=== PATIENT | female | born 1965 | race Caucasian/White ===

== ENCOUNTER 2018-03-08 08:50 | Outpatient (CLI) | payer OTHER, SELFPAY ==
--- NOTE | 2018-03-08 09:47 | W.PREOPHP ---
Assessment and Plan (1) Right ACL tear: Current visit: Yes Status: Acute Plan: Reviewed and discussed surgery including surgical technique, recovery, benefits and risks including but not limited to risk of infection, blood clot, damage to soft tissue/nerves/blood vessels with patient in detail. After discussion of risks patient gave verbal understanding and elects to proceed with procedure. Patient had opportunity to have questions answered to her satisfaction. Patient will contact office if issues arise, she will continue to be scheduled for right knee arthroscopy with Dr. Man on 03/14/18. Qualifiers: Encounter type: subsequent encounter Qualified Code(s): S83.511D - Sprain of anterior cruciate ligament of right knee, subsequent encounter History of Present Illness Narrative: Ms. Mccann is a 52-year-old female who presents to clinic for preoperative visit for scheduled right knee arthroscopy with Dr. Man on 03/14/18. Patient suffered a Workmen's Comp. 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 She fell on her back and is unable to recall how her knee was oriented during the fall but since that time has had right knee pain. Patient describes diffuse right knee pain, weakness and occasional giving out sensations. She had first been seen at [facility] where she was fitted with a brace and given prescription for physical therapy. Patient states the brace did not provide pain relief and was uncomfortable, he has continued to attend physical therapy regularly since October 2017 without significant improvement. Patient was originally scheduled for right ACL surgery with [facility], however due to social circumstances patient relocated to the area to provide care for her mother and was unable to continue with her surgery date. Patient has continued to take ibuprofen as needed which provides slight pain relief and attend physical therapy at [facility] regularly. Patient presented to orthopedic clinic on 02/08/18 at which time the disc of diagnostic imaging she had previously done was unable to be viewed. However, due to patient's history and positive pertinent physical exam findings including anterior drawer, Logan's test and pivot?shift test from that day Dr. Man elected to continue with scheduling right knee arthroscopy to provide visualization of the ACL tear and hopefully have symptomatic improvement. Pertinent Surgical Information Patient reports sleep apnea diagnosis for several years with intermittent compliance with CPAP machine. Patient reports has been using CPAP machine nightly for the last 1.5 years. Patient denies any dyspnea, orthopnea, or paroxysmal nocturnal dyspnea. Denies past medical history of: Hypertension, stroke, cardiac issues, angina, asthma, COPD, renal issues, liver issues, hepatitis, gastrointestinal issues, ulcers, bleeding disorders, seizures, anxiety, diabetes, autoimmune disorders, thyroid issues Denies prior complications from surgery or anesthesia. Review of Systems Constitutional Denies fever(s), Denies frequent falls and Denies headache(s) Eyes Denies change in vision ENT Denies otalgia, Denies headache(s), Denies epistaxis, Denies nasal congestion, Denies nasal discharge and Denies sore throat Cardiovascular Denies chest pain, Denies rapid heart rate, Denies irregular heart rhythm, Denies dyspnea, Denies dyspnea on exertion, Denies orthopnea, Denies paroxysmal nocturnal dyspnea and Denies slow heart rate Respiratory Denies cough, Denies dyspnea, Denies dyspnea on exertion and Denies wheezing Gastrointestinal Denies abdominal pain, Denies melena, Denies hematochezia, Denies constipation, Denies diarrhea, Denies nausea and Denies vomiting Genitourinary Denies hematuria, Denies dysuria and Denies urinary urgency Musculoskeletal Reports as per HPI, Denies numbness and Denies tingling Neurologic Denies frequent falls, Denies headache(s), Denies numbness and Denies tingling Psychiatric Denies anxiety and Reports depression Allergic/Immunologic Denies wheezing PFSH Medical History Migraine (Chronic) Hx of irritable bowel syndrome (Inactive) Obesity (Chronic) Smoker (Chronic) Hereditary hemochromatosis (Chronic) Mood disorder (Chronic) MAGDALENO on CPAP (Chronic) Right ACL tear (Acute) Surgical History Status post arthroscopy of right shoulder (Acute) History of detached retina repair (Acute) Status post nasal surgery (Acute) Status post cervical spinal fusion (Acute) Family History Mother Mitral valve prolapse History of supraventricular tachycardia History of atrial fibrillation Dementia Hereditary hemochromatosis Father Hypertension Hyperlipidemia Glaucoma Sister No problems noted. Social History marital status: current occupational status: unemployed Smoking/Tobacco Use Status: Current every day tobacco type: cigarettes alcohol intake: current alcohol intake frequency: a few times a month substance use type: does not use Meds Home Medications Medication Instructions Recorded Confirmed Type atorvastatin 40 mg tablet 40 mg PO DAILY 02/28/18 03/08/18 History bupropion HCl XL 300 mg 24 hr 300 mg PO QAM 02/28/18 03/08/18 History tablet, extended release dextroamphetamine-amphetamine ER 30 mg PO QAM 02/28/18 03/08/18 History 30 mg 24hr capsule,extend release duloxetine 60 mg capsule,delayed 60 mg PO DAILY 02/28/18 03/08/18 History release fexofenadine 180 mg tablet 180 mg PO DAILY 02/28/18 03/08/18 History ibuprofen 800 mg tablet 800 mg PO TID PRN 02/28/18 03/08/18 History propranolol ER 60 mg capsule,24 60 mg PO DAILY 02/28/18 03/08/18 History hr,extended release rizatriptan 10 mg tablet 10 mg PO PRN PRN 02/28/18 03/08/18 History aripiprazole [Abilify] 3.75 mg PO DAILY 03/08/18 03/08/18 History Allergies Allergy/AdvReac Type Severity Reaction Status Date / Time lodine Allergy Hives Uncoded 03/08/18 14:48 Exam Const General: cooperative and no acute distress [facility] Head: normal to inspection, normocephalic and atraumatic Ears: external ears normal General nose exam: external nose normal and no nasal discharge Face and sinus: face symmetric Mouth: oral mucosae normal, lip normal, tongue normal and moist mucous membranes Teeth and gingiva: dentition normal Throat: posterior oropharynx normal Eyes General: appearance normal, both eyes and all related structures Pupils: PERRL EOM: EOM intact bilaterally Neck Neck: trachea midline Carotids: normal carotid upstroke Lymphatic: no lymphadenopathy noted Resp Effort & Inspection: normal respiratory effort and able to speak in complete sentences Auscultation: clear to auscultation bilaterally, no rales, no rhonchi and no wheezes Cardio Heart Sounds: S1 normal, S2 normal, no murmurs, no rubs and no other Pulses: radial pulses present bilaterally GI Palpation: soft, no hepatosplenomegaly and nontender Auscultation: normal bowel sounds Skin General skin exam: no rashes or lesions noted Extrem Other: Right knee examination: Skin is intact without areas of rashes, lesions, ecchymosis or erythema. No tenderness to palpation along joint lines or with movement of patella. No signs of effusion are noted. Active range of motion yields full extension and flexion of 120 degrees without eliciting discomfort.
== END 2018-03-08 09:10 ==
PROVIDERS: PCP Family Medicine; Visit Provider Orthopaedic Surgery
DX: S83.511A Sprain of anterior cruciate ligament of right knee, initial encounter (principal); M25.561 Pain in right knee; Z01.818 Encounter for other preprocedural examination
CPT/HCPCS: NC

== ENCOUNTER 2018-03-14 11:16 | Day surgery (SDC) | payer MEDICAID, OTHER, SELFPAY ==
[2018-03-14 11:25] VITALS: BP 158/101; PULSE 67; RESP 20; TEMP 37; O2SAT 97
[2018-03-14] MEDS: Lactated Ringers 1,000 ML 80 ML IV (11:45)
[2018-03-14 13:49] VITALS: BP 153/82; PULSE 60; RESP 12; TEMP 36.3; O2SAT 96
--- NOTE | 2018-03-14 13:49 | PDOC.DSDIS_ITS ---
Discharge Plan Disposition Patient Disposition: HOME Condition: Good Discharge Details Reason For Visit: arthroscopy R knee Attending Provider: Rl Man Primary Care Provider: Angela Leon Home Meds and New Rx's Prescriptions: New ibuprofen 800 mg tablet 800 mg PO TID Qty: 30 RF: 0 hydrocodone-acetaminophen 5-325 mg tablet 1 tab PO Q6H PRN (Reason: pain) Qty: 14 RF: 0 Continued dextroamphetamine-amphetamine [Adderall XR] 30 mg capsule,extended release 24hr 30 mg PO QAM RF: 0 rizatriptan 10 mg tablet 10 mg PO PRN PRNRF: 0 propranolol 60 mg capsule,extended release 24 hr 60 mg PO DAILY RF: 0 ibuprofen 800 mg tablet 800 mg PO TID PRNRF: 0 atorvastatin 40 mg tablet 40 mg PO DAILY RF: 0 fexofenadine 180 mg tablet 180 mg PO DAILY RF: 0 duloxetine [Cymbalta] 60 mg capsule,delayed release(DR/EC) 60 mg PO DAILY RF: 0 bupropion HCl [Wellbutrin XL] 300 mg tablet extended release 24 hr 300 mg PO QAM RF: 0 aripiprazole [Abilify] 5 mg Tablet 3.75 mg PO DAILY RF: 0 Discharge Instructions Additional Instructions: Crutches to walk. May put as much weight on R leg as your pain. Discontinue crutches as soon as you can step on R leg with minimal pain. Elevate R leg on 1-2 pillows as much as possible for next 48 hours. Apply cryocuff to R knee every 4 hours for 1 hour each time overnite. Tomorrow, apply 4 times/day for 1 hour each time. May remove dressings, shower, and get incisions wet on . Leave incisions uncovered when they are dry and sealed. Start outpatient physical therapy on or Monday for rehab R knee post- arthroscopy R knee to resect torn ACL. Take ibuprofen as ordered 3 times/day for 10 days to decrease inflammation and swelling. Take hydrocodone for breakthru pain, if needed. Return to 's office in 2 weeks. Equipment/Supplies: Partial Weight Bearing Crutches Activity:: Activity as Tolerated Remove Dressings/Wound Care:: 72 hours Shower/Bathe:: 72 hours Diet:: As Tolerated Discharge Orders Discharge Orders: Discharge Order (Routine); Ordered 03/14/18 Ordered By: Rl Man DS: Diagnosis Discharge Diagnosis (1) Right ACL tear: Status: Acute
[2018-03-14 13:54] VITALS: BP 148/86; PULSE 60; RESP 18; TEMP 36.3; O2SAT 98
[2018-03-14 13:59] VITALS: BP 145/82; PULSE 61; RESP 17; TEMP 36.3; O2SAT 97
[2018-03-14 14:13] VITALS: BP 150/80; PULSE 59; RESP 14; TEMP 36.4; O2SAT 98
[2018-03-14] MEDS: oxyCODONE-CR 10 MG TABCR PO (14:51)
[2018-03-14 15:03] VITALS: BP 132/84; PULSE 61; RESP 18; TEMP 36.4; O2SAT 96
--- NOTE | 2018-03-15 17:35 | ROE_ITS ---
DATE OF PROCEDURE: March 14, 2018 PREOPERATIVE DIAGNOSIS: Torn ACL right knee. POSTOPERATIVE DIAGNOSIS: Torn ACL right knee. PROCEDURE: Arthroscopy of the right knee with resection of stump of torn ACL. SURGEON: Rl Man M.D. ANESTHESIA: General, Jack Rothman CRNA INDICATIONS: This is a 52-year-old white female who injured her right knee at work in September of 2017. She was seen by an orthopedist in [place], [place], where the diagnosis of a torn ACL was made. Ther e was some discussion about surgical reconstruction of the torn ACL. The patient had some family iss ues and so could not undergo surgery at that time. She has continued to have problems with recurrent swelling and giving way of her right knee. She subsequently moved to the [facility] and Maxwell leonard assumed her care. Her MRI scan does show a torn ACL and my interpretation is that she appears to have a stump of ACL tissue that is impinging on the intercondylar notch. It does not look like she has any meniscal pathology. Because of her age of 52 years and activity level that does not involve activities that involve any cutting or twisting, I felt that she probably would not need ACL reconstr uction. I felt that a resection of the torn stump of the ACL would probably alleviate her symptoms a nd allow her to have a stable knee for all of her usual activities. I felt that an arthroscopic proc edure would be much simpler and easier and faster to recover from than an ACL reconstruction. I also explained to her that if she did continue to have symptoms of instability after the arthroscopic res ection of the ACL, she could always consider an allograft ACL reconstruction at a later date. The ri sks and complications of the procedure were explained to the patient in detail preoperatively. PROCEDURE: The patient was taken to the Operating Room on 03/14/18. She was placed supine on the oper ating table and a general anesthetic was administered. The right thigh was placed in the arthroscopi c leg moreno and the right knee was prepped and draped free in the usual sterile fashion. Arthroscop ic portals were established. The right knee was inflated with normal saline solution using the arthr oscopy pump and then routine arthroscopic examination proceeded. Intraoperative photographs were obt ained to document findings. Upon entering the medial compartment she was found to have a normal medial meniscus. The articular c artilage in the medial compartment was undamaged and normal in appearance. The lateral compartment showed a normal lateral meniscus and normal articular cartilage in the latera l compartment. The intercondylar notch showed a midsubstance tear of the ACL. The tibial stump of the ACL was scarr ed and was pedunculated and appeared to impinge between the condyles and the tibial plateau. Using frederick ramos high-radiofrequency electrocautery wand introduced through an anteromedial portal, I was able to r esect the torn fibers of the ACL including the pedunculated stump of scar tissue. The intercondylar was now completely decompressed. The suprapatellar pouch was clear. The patellofemoral joint was normal with normal patellar tracking . 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 This really did not need any treatment. The medial and lateral gutters were clear. No patella plica was present. At this point, the knee was copiously irrigated with saline solution using the arthroscopy pump until the outflow was clear. Twenty cc of 0.5% Marcaine with epinephrine solution along with 4 mg of morp danis were instilled into the right knee and all instruments were removed from the knee. The arthrosc opy portals were infiltrated with 0.5% Marcaine with epinephrine solution and were approximated with interrupted #4-0 nylon sutures. Sterile dressings were applied of Xeroform gauze, sterile gauze 4x4s , ABD pads, and wrapped with 6-inch Sonido bandages for a light pressure dressing. The patient's anesth esia was reversed without complications. Blood loss was minimal and she was discharged to the [facility] Room in good condition. The patient was later discharged home from the Day Surgery Unit when fully recovered from her general anesthesia. She was given instructions to elevate her right leg on one to two pillows as much as po ssible for the next 48 hours. She is to apply the Cryo/Cuff to the right knee four times a day for o ne hour each time to help decrease swelling. She may remove her dressings, shower and get her incisi ons wet after 72 hours. She may leave the incisions uncovered if they are dry and sealed. She was sumeet wade a prescription for inflammation and swelling of ibuprofen 800 mg p.o. t.i.d. for 10 days. For b reakthrough pain she is given a prescription of hydrocodone/APAP 5 mg/325 mg, 1 tablet every 6 hours as needed. She will use crutches to walk, weightbearing as tolerated to the right leg. She may disc ontinue the crutches as soon as discomfort allows. We will have her start Physical Therapy to rehab her right knee on or Monday. She will follow up in Dr. Man's office in two weeks.
== END 2018-03-14 15:51 | disposition home or self-care (01) ==
PROVIDERS: PCP Family Medicine; Visit Provider Orthopaedic Surgery
PROC: (CPT 29870; principal; 2018-03-14 13:00)
DX: S83.511A Sprain of anterior cruciate ligament of right knee, initial encounter (principal); X58.XXXA Exposure to other specified factors, initial encounter; Y99.0 Civilian activity done for income or pay
CPT/HCPCS: 29888; E0114; J0131; J0690; J1100; J1200; J1885; J2250; J2405; J3010

== ENCOUNTER 2018-05-02 09:55 | Emergency (ER) | payer MEDICAID, SELFPAY ==
[2018-05-02 10:01] VITALS: BP 149/78; PULSE 60; RESP 20; TEMP 36.4; O2SAT 99
--- NOTE | 2018-05-02 10:24 | ED.GENADUL_ITS ---
Discharge Plan Disposition Patient Disposition: HOME Condition: Improving Discharge Details Chief Complaint: Abd Prob Clinical Impression: Left nephrolithiasis Primary Care Provider: Angela Leon ED Provider: Alysha Garcia Home Meds and New Rx's Prescriptions: New tamsulosin [Flomax] 0.4 mg capsule 0.4 mg PO DAILY Qty: 10 RF: 0 oxycodone 5 mg tablet 5 mg PO Q6H PRN (Reason: pain) Qty: 5 RF: 0 Continued dextroamphetamine-amphetamine [Adderall XR] 30 mg capsule,extended release 24hr 30 mg PO QAM RF: 0 rizatriptan 10 mg tablet 10 mg PO PRN PRNRF: 0 propranolol 60 mg capsule,extended release 24 hr 60 mg PO DAILY RF: 0 ibuprofen 800 mg tablet 800 mg PO TID PRNRF: 0 atorvastatin 40 mg tablet 40 mg PO DAILY RF: 0 fexofenadine 180 mg tablet 180 mg PO DAILY RF: 0 duloxetine [Cymbalta] 60 mg capsule,delayed release(DR/EC) 60 mg PO DAILY RF: 0 bupropion HCl [Wellbutrin XL] 300 mg tablet extended release 24 hr 300 mg PO QAM RF: 0 aripiprazole [Abilify] 5 mg Tablet 3.75 mg PO DAILY RF: 0 Discharge Instructions Instructions: Kidney Stones (ED) Additional Instructions: Alternate Tylenol and Motrin as needed and directed for pain. Take the Flomax daily. Take the oxycodone as needed for pain not relieved with Tylenol or Motrin. You will receive a call from home care nurse regarding a follow-up appointment with urology. Return immediately to the emergency department with any worsening or new concerning symptoms. Referrals: Byron Mcnamara MD [ [facility] STAFF PHYSICIAN] - Discharge Data Discharge Date/Time-TO BE ENTERED AT DEPARTURE: 05/02/18 14:05 Discharge Physician: Alysha Garcia Medical Decision Making 52-year-old female who presents with left flank pain with radiation to left mid and lower quadrant since this morning. Some nausea but no vomiting, fever, urinary symptoms. Vitals within normal limits. Afebrile. Patient appears nontoxic in no acute distress. She has no abdominal tenderness and her abdomen is soft without rebound or guarding. No CVA tenderness. Differential diagnosis includes nephrolithiasis, gastritis, pancreatitis, diverticulitis. We will place an IV, bolus IV fluids, labs, urinalysis and will give a dose of Toradol and Zofran. 1330 --labs and imaging reviewed. White blood cell count 12. Normal electrolytes and renal function. Lipase negative. Urinalysis notes 3-5 WBCs with negative leukocyte esterase, nitrate with few bacteria and moderate epithelial cells, consistent with contamination. CT notes a 3 mm stone in the ureteropelvic junction with mild hydronephrosis. Suspect the leukocytosis is an acute stress response as I do not think there is an acute infection in the urine. Patient states she feels much better and feels good to go home. Will place patient on care management list for urology follow- up. She was given a strainer for home, dose of Flomax here as well as prescription for Flomax for home. Will also send with a few tabs of oxycodone. She is instructed to alternate Tylenol and Motrin as needed for pain and to return at any time if worse. Medical Records Medical records reviewed: Yes I reviewed the patient's medical records. Imaging Data Radiologic Study: Radiologist's impression: RENAL COLIC CT: Routine examination was performed. There is a 3 mm stone at the left ureteropelvic junction causing mild hydronephrosis. No other stones are seen. The urinary bladder is intact. The reproductive organs are unremarkable except for an intrauterine device in place. Lack of IV contrast does limit evaluation of the abdominal and pelvic organs. The unenhanced visualized portions of the liver, spleen, pancreas, gallbladder and bile ducts are unremarkable. The adrenal glands have a normal appearance. There is diverticulosis seen in the proximal sigmoid colon but no evidence of acute diverticulitis. No evidence of bowel obstruction is seen. There is a normal appendix present. The aorta is of normal caliber. There is mild atherosclerosis present. No significant abdominal or pelvic adenopathy, ascites or pneumoperitoneum is seen. Degenerative changes are present in the spine particularly at the L 4 - 5 disc level. IMPRESSION: 3 mm stone at the left UPJ causing mild hydronephrosis. Lab Data Lab results reviewed: Yes I reviewed the patient's lab results. Laboratory Tests Range/Units 05/02/18 05/02/18 05/02/18 10:40 10:40 12:00 WBC (4.4-10.8) k/cumm 12.50 H RBC (4.00-5.20) m/cumm 4.28 Hgb (12.0-15.5) g/dL 13.3 Hct (36.0-46.0) % 39.1 MCV (80-95) fL 91.4 MCH (27.0-33.0) pg 31.1 MCHC (32.0-36.0) g/dL 34.0 RDW (11.7-14.6) % 13.2 Plt Count (130-400) x1000/uL 258 MPV (8.0-11.0) fL 9.8 Immature Gran % 0.2 Neutrophils % 74.8 Lymphocytes % 17.8 Monocytes % 5.3 Eosinophils % 1.7 Basophils % 0.2 Absolute Neutrophils (1.2-6.7) k/cumm 9.35 H Absolute Lymphocytes (1.2-3.4) k/cumm 2.23 Absolute Monocytes (0.11-0.7) k/cumm 0.66 Absolute Eosinophils (0.0-0.7) k/cumm 0.21 Absolute Basophils (0.0-0.2) k/cumm 0.03 Sodium (136-145) mmol/L 144 Potassium (3.5-5.1) mmol/L 4.0 Chloride (98-107) mmol/L 106 Carbon Dioxide (21.0-32.0) mmol/L 29.1 Anion Gap (3-11) mmol/L 8.9 BUN (7-18) mg/dL 15 Creatinine (0.55-1.02) mg/dL 1.02 Estimated GFR/1.73 m2 (mL/min/1.73m2) 57.36 Glucose (70-100) mg/dL 125 H Calcium (8.5-10.1) mg/dL 9.1 Total Bilirubin (0.2-1.0) mg/dL 0.3 AST (15-37) U/L 27 ALT (12-78) U/L 34 Alkaline Phosphatase (46-116) U/L 99 Total Protein (6.4-8.2) g/dL 7.9 Albumin (3.4-5.0) g/dL 3.5 Lipase (73-393) U/L 218 Urine Color (Yellow) Yellow Urine Clarity Clear Urine pH (5-8) 7.5 Ur Specific [place] (1.005-1.025) 1.020 Urine Protein (Negative) mg/dL 30 H Urine Ketones (Negative) mg/dL Negative Urine Blood (Negative) Large H Urine Nitrite (Negative) Negative Urine Bilirubin (Negative) Negative Urine Urobilinogen (Up TO 0.2) EU/dL 0.2 Ur Leukocyte Esterase (Negative) Negative Urine RBC (0-2) 10-20 H Urine WBC (0-5) HPF 3-5 Ur Epithelial Cells (Negative) HPF Moderate Urine Crystals (Negative) HPF Negative Urine Bacteria (Negative) HPF Few Urine Casts (Negative) LPF Negative Urine Mucus (Negative) Negative Ur Culture Indicated? No/sq. contamination Urine Glucose (Negative) mg/dL Negative HPI General Mode of arrival: ambulatory . Date/Time Provider Initiated Documentation: 05/02/18 10:10 . Limitations to Documentation: no limitations . Information obtained by: patient . HPI Narrative: Patient is a 52-year-old female who presents the ED with a complaint of left-sided flank pain since 8:00 this morning. She states the pain is constant, sharp and goes from her left flank to her left mid and left lower quadrant. She states the pain is currently 8/10. She denies any aggravating or alleviating factors. She admits to some nausea but she denies any known fever, vomiting, diarrhea, urinary symptoms. She denies any history of known kidney stones or history of injury. Related Data Home Medications Medication Instructions Recorded Confirmed atorvastatin 40 mg tablet 40 mg PO DAILY 02/28/18 05/02/18 bupropion HCl XL 300 mg 24 hr 300 mg PO QAM 02/28/18 05/02/18 tablet, extended release dextroamphetamine-amphetamine ER 30 mg PO QAM 02/28/18 05/02/18 30 mg 24hr capsule,extend release duloxetine 60 mg capsule,delayed 60 mg PO DAILY 02/28/18 05/02/18 release fexofenadine 180 mg tablet 180 mg PO DAILY 02/28/18 05/02/18 ibuprofen 800 mg tablet 800 mg PO TID PRN 02/28/18 05/02/18 propranolol ER 60 mg capsule,24 60 mg PO DAILY 02/28/18 05/02/18 hr,extended release rizatriptan 10 mg tablet 10 mg PO PRN PRN 02/28/18 05/02/18 aripiprazole [Abilify] 3.75 mg PO DAILY 03/08/18 05/02/18 oxycodone 5 mg PO Q6H PRN #5 tab 05/02/18 tamsulosin [Flomax] 0.4 mg PO DAILY #10 cap 05/02/18 Previous Rx's Medication Instructions Recorded oxycodone 5 mg PO Q6H PRN #5 tab 05/02/18 tamsulosin [Flomax] 0.4 mg PO DAILY #10 cap 05/02/18 Allergies Allergy/AdvReac Type Severity Reaction Status Date / Time lodine Allergy Intermediate Hives Uncoded 05/02/18 10:05 General Stated Complaint: Abd Prob VALENTIN: 3 Review of Systems Review of Systems All systems reviewed & are unremarkable except as noted in HPI and below Constitutional Reports as per HPI, Denies chills and Denies fever(s) Eyes Denies blurry vision ENT Denies dizziness, Denies sore throat and Denies throat swelling Cardiovascular Denies chest pain and Denies dyspnea Respiratory Denies cough and Denies dyspnea Gastrointestinal Reports abdominal pain, Denies diarrhea and Denies vomiting Genitourinary Denies hematuria, Denies dysuria and Reports flank pain Musculoskeletal Reports back pain and Denies numbness Integumentary/Breasts Denies lesions and Denies rash Neurologic Denies dizziness, Denies focal weakness and Denies numbness Allergic/Immunologic Denies throat swelling [facility] Medical History Migraine (Chronic) Hx of irritable bowel syndrome (Inactive) Obesity (Chronic) Smoker (Chronic) Hereditary hemochromatosis (Chronic) Mood disorder (Chronic) MAGDALENO on CPAP (Chronic) Right ACL tear (Acute) Surgical History Status post arthroscopy of right shoulder (Acute) History of detached retina repair (Acute) Status post nasal surgery (Acute) Status post cervical spinal fusion (Acute) Family History Mother Mitral valve prolapse History of supraventricular tachycardia History of atrial fibrillation Dementia Hereditary hemochromatosis Father Hypertension Hyperlipidemia Glaucoma Sister No problems noted. Social History current occupational status: unemployed Smoking and Tabacco status: Current every day tobacco type: cigarettes alcohol intake: current alcohol intake frequency: a few times a month substance use type: does not use Exam Const General: cooperative, healthy appearing and no acute distress HENMT Head: normal to inspection Face and sinus: normal facial exam Eyes General: appearance normal, both eyes and all related structures EOM: EOM intact bilaterally Neck Neck: normal visual inspection and No submandibular swelling Lymphatic: no lymphadenopathy noted Chest Chest: normal inspection of the chest and no tenderness Resp Effort & Inspection: normal respiratory effort and able to speak in complete sentences Auscultation: clear to auscultation bilaterally Cardio Rate: regular rate Rhythm: regular rhythm GI Inspection: normal to inspection Palpation: soft, not firm, not rigid and nontender Auscultation: normal bowel sounds Back/Spine/Pelvis Back: no CVA tenderness Thoracic/Lumbar Spine: thoracic and lumbar spine normal to inspection Pelvis: no pain with anterior-posterior compression Skin General skin exam: no rashes or lesions noted Neuro General: alert, awake and oriented x3 Cognition: normal cognition Speech: speech normal Motor: muscle tone normal throughout Sensory Exam: no sensory deficits noted Extrem General: normal to inspection, full ROM, normal capillary refill, no calf tenderness bilaterally and no edema Psych Appearance: grossly normal Mental Status: mental status grossly normal Speech and Movement: speech and movement normal Affect: normal affect Course Vital Signs Temperature 97.5 F L 05/02/18 10:01 Pulse 60 05/02/18 10:01 Respiratory Rate 20 05/02/18 10:01 Blood Pressure 149/78 H 05/02/18 10:01 Pulse Oximetry 99 05/02/18 10:01 Temperature 97.5 F L 05/02/18 10:01 Temperature Source Temporal Artery Scan 05/02/18 10:01 Pulse 60 05/02/18 10:01 Respiratory Rate 20 05/02/18 10:01 Respiratory Effort Non-Labored 05/02/18 10:01 Blood Pressure 149/78 H 05/02/18 10:01 Blood Pressure Position Sitting 05/02/18 10:01 Pulse Oximetry 99 05/02/18 10:01 Pain Level 8 05/02/18 10:05
[2018-05-02] MEDS: Normal Saline 1,000 ML 1000 ML IV (10:40)
[2018-05-02 10:45] LABS: Abs Immature Grans 0.03 k/cumm (0.0-0.09); Absolute Basophil Count 0.03 k/cumm (0.0-0.2); Absolute Eosinophil Count 0.21 k/cumm (0.0-0.7); Absolute Monocyte Count 0.66 k/cumm (0.11-0.7); Absolute Neutrophil Count 9.35 k/cumm (1.2-6.7); Basophils % 0.2; Eosinophils % 1.7; HCT 39.1 % (36.0-46.0); HGB 13.3 g/dL (12.0-15.5); Immature Grans % 0.2; Lymphocytes % 17.8; Mean Corpuscular Hemoglobin 31.1 pg (27.0-33.0); Mean Corpuscular Volume 91.4 fL (80-95); Mean Platelet Volume 9.8 fL (8.0-11.0); Monocytes % 5.3; Neutrophils % 74.8; Platelet Count 258 x1000/uL (130-400); RBC 4.28 m/cumm (4.00-5.20); RBC Distribution Width 13.2 % (11.7-14.6)
[2018-05-02 10:49] LABS: Absolute Lymphocyte Count 2.23 k/cumm (1.2-3.4)
[2018-05-02 10:59] LABS: ALT 34 U/L (12-78); AST 27 U/L (15-37); Albumin 3.5 g/dL (3.4-5.0); Alkaline Phosphatase 99 U/L (46-116); Anion Gap 8.9 mmol/L (3-11); BUN 15 mg/dL (7-18); Bilirubin, Total 0.3 mg/dL (0.2-1.0); CO2 29.1 mmol/L (21.0-32.0); CREATININE 1.02 mg/dL (0.55-1.02); Calcium 9.1 mg/dL (8.5-10.1); Chloride 106 mmol/L (98-107); Estimated GFR 57.36 (mL/min/1.73m2); Glucose 125 mg/dL (70-100); Lipase 218 U/L (73-393); Sodium 144 mmol/L (136-145); Total Protein 7.9 g/dL (6.4-8.2)
[2018-05-02] MEDS: Ketorolac 30 MG/ML VIAL IVP (12:37)
[2018-05-02] MEDS: Ondansetron 4 MG/2 ML VIAL IVP (12:37)
[2018-05-02 12:38] LABS: Bilirubin Negative (Negative); Blood Large (Negative); Clarity Clear; Glucose Negative (Negative); Ketones Negative (Negative); Leukocyte Esterase Negative (Negative); Nitrite Negative (Negative); Urobilinogen 0.2 EU/dL (Up TO 0.2); pH 7.5 (5-8)
[2018-05-02 12:45] LABS: Bacteria Few HPF (Negative); C & S Indicated? No/Sq. Contamination; Casts Negative LPF (Negative); Crystals Negative HPF (Negative); Epithelial Cells Moderate HPF (Negative); Mucus Negative (Negative)
[2018-05-02 14:07] VITALS: BP 121/76; PULSE 84; RESP 20; TEMP 36.6; O2SAT 99
--- NOTE | 2018-05-03 08:42 | PDOC.ERCMPRO ---
Care Management Progress Note 05/03-Dr. Garcia requested assistance with a Dr. Mcnamara f/u for kidney stone. Referral faxed [facility] this am.
== END 2018-05-02 14:05 | disposition home or self-care (01) ==
PROVIDERS: Emergency Provider Physician Assistant; PCP Family Medicine
DX: N13.39 Other hydronephrosis (principal)
CPT/HCPCS: 36415; 80053; 83690; 96361; 96374; 96375; 99284; 74176; 81003; 81015; 85025; J1885; J2405

== ENCOUNTER 2018-05-23 01:52 | Outpatient (CLI) | payer MEDICAID, SELFPAY ==
--- NOTE | 2018-05-23 13:39 | DI.MAMMO_ITS ---
SYMPTOM/DIAGNOSIS: SCREENING, Z12.39 MAMMOGRAMS: Mammograms were interpreted according to the usual protocol including computer analysis with CAD system, tomosynthesis and C view imaging. Comparison is made with exams from [facility] dated [id number]. The breasts are composed of scattered fibroglandular densities. Breast density, Category B. No suspicious masses or suspicious microcalcifications are seen. There has been no significant change. IMPRESSION: Category 1, negative mammogram. Yearly screening mammography is recommended. [facility] ASSESSMENT OF FINDINGS: Negative. Category 1. Patient will receive a letter notifying them of these results. BI-RADS category B. There are scattered areas of fibroglandular density.
== END 2018-05-23 02:12 ==
PROVIDERS: PCP Family Medicine; Visit Provider Family Medicine
DX: Z12.31 Encounter for screening mammogram for malignant neoplasm of breast (principal)
CPT/HCPCS: 77063; 77067

== ENCOUNTER 2018-09-03 06:10 | Day surgery (SDC) | payer MEDICAID, SELFPAY ==
[2018-09-03 06:31] VITALS: BP 140/86; PULSE 60; RESP 18; TEMP 36.6; O2SAT 97
--- NOTE | 2018-09-03 06:40 | W.COLOREPORT ---
Date of service: 09/03/18 Time of Service: 07:30 Colonoscopy Report Date of procedure: 09/03/18 Pre-op diagnosis general: Colon Cancer Screening Post-op diagnosis procedure note: other (Descending colon polyp and diverticulosis) Procedure: Colonoscopy with polypectomy by cold forceps Surgeon: Franca Greer Anesthesia proc note operative: other (General/ ASA 3/Jody Wall CRNA) Estimated blood loss (mL): 2 Pathology: other (Descending colon polyp) Complications: None Disposition: same day Indications: Mrs. Mccann is a pleasant 52 year old female seen in the office for a screening colonoscopy. Her last colonoscopy was in 1991 for diarrhea. She was diagnosed as having IBS-D. Risks, benefits and complications have been reviewed. Complications include but are not limited to bleeding, pain, perforation, missed small lesion/polyp, sore throat, aspiration and adverse reaction to the medications. Questions were entertained and answered to their satisfaction and they wished to proceed. No guarantees were given or implied. Prep: Miralax/Dulcolax Procedure Start Time: :30 Procedure End Time: :52 Retraction Time: 14 minutes Findings: One small descending colon polyp and moderate diverticulosis Procedure Description: After informed consent was obtained the patient was taken to the procedure room and placed in a left decubitous position. Monitors were applied and a time out was done. The patients name, date of , procedure, allergies to medications and metal in their body was reviewed. The patient was then sedated. Once sedated and comfortable a rectal exam was done. External exam was normal. Internal exam revealed a normal sphincter tone and no palpable masses. The scope was then introduced and retro-flexed. No internal hemorrhoids were identified. There were no polyps and masses. The scope was then advanced to the cecum without difficulty. The TI and appendiceal orifice were identified. The prep was adeqquate. The scope was then slowly retracted over 14 minutes back into the rectum. Polyp was removed in the descending colon with cold forceps. The scope was removed and the patient was woken up and taken back to Same day surgery in stable condition. The patient tolerated the procedure well and there were no immediate complications. Follow up: The patient should follow up in 3-5 years unless they develop changes in bowel habits or other new gastrointestinal complaints.
--- NOTE | 2018-09-03 06:42 | PDOC.DSDIS_ITS ---
Discharge Plan Disposition Patient Disposition: HOME Condition: Good Discharge Details Reason For Visit: Colon Cancer Screening Attending Provider: Franca Greer Primary Care Provider: Angela Leon Home Meds and New Rx's Prescriptions: Continued dextroamphetamine-amphetamine [Adderall XR] 30 mg capsule,extended release 24hr 30 mg PO QAM RF: 0 rizatriptan 10 mg tablet 10 mg PO PRN PRNRF: 0 propranolol 60 mg capsule,extended release 24 hr 60 mg PO DAILY RF: 0 ibuprofen 800 mg tablet 800 mg PO TID PRNRF: 0 atorvastatin 40 mg tablet 40 mg PO DAILY RF: 0 fexofenadine 180 mg tablet 180 mg PO DAILY RF: 0 duloxetine [Cymbalta] 60 mg capsule,delayed release(DR/EC) 60 mg PO DAILY RF: 0 bupropion HCl [Wellbutrin XL] 300 mg tablet extended release 24 hr 300 mg PO QAM RF: 0 cyclobenzaprine 10 mg tablet 10 mg PO BID RF: 0 aripiprazole [Abilify] 5 mg Tablet 2 mg PO DAILY RF: 0 Discontinued bisacodyl [Dulcolax (bisacodyl)] 5 mg tablet,delayed release (DR/EC) 5 mg PO ONCE Qty: 4 RF: 0 polyethylene glycol 3350 17 gram powder in packet 255 g PO DAILY Qty: 15 RF: 0 Discharge Instructions Instructions: Colonoscopy (DC), Colorectal Polyps (DC), Diverticulosis (DC) Additional Instructions: Findings: One polyp was removed Diverticulosis Follow up: 3-5 years Please call if you develop: fevers >101.5 Nausea or Vomiting Abdominal pain that is not transient DAY SURGERY UNIT POST COLONOSCOPY INSTRUCTIONS 1. Because there will be medication in your system for the next 24 hours, you may feel a little sleepy. Your coordination will be affected. Therefore: a. Do not drive or operate dangerous equipment for 24 hours. b. Do not drink alcohol beverages for 24 hours (not even beer). c. Plan to go home and rest for the day. 2. Generally there are no restrictions on your activity after a day or so has g one by, but you may feel a bit fatigued for a few days. 3 After you arrive home you may have a light meal and return to a normal diet as you can tolerate it without feeling sick to your stomach. 4. After surgery, you may feel pain or discomfort. This should be only transient, but if it persists please contact your doctor. 5. If there are any questions regarding the findings of your procedure, please feel free to contact your doctor. 6. If you are unable to contact your doctor with a problem, contact the hospital at [phone]. 7. Continue all your regular medications unless directed otherwise. I understand the above instructions and have no questions. Signature of Patient or Responsible Adult Escort Date/Time Name of Responsible Adult Escort Signature of Nurse Date/Time Activity:: Activity as Tolerated Diet:: High Fiber Discharge Orders Discharge Orders: Discharge Order (Routine); Ordered 09/03/18 Ordered By: Franca Greer DS: Diagnosis Discharge Diagnosis (1) S/P colonoscopy: Status: Acute (2) Diverticulosis: Status: Acute
[2018-09-03] MEDS: Lactated Ringers 1,000 ML 80 ML IV (06:55)
--- NOTE | 2018-09-03 07:49 | BOWEL_PTH ---
PATIENT: Valerie Mccann LOC: [facility] U#:[id number] AGE/SX: 52/F ROOM: RE09/03/[address]: Franca Greer MD : [id number] BED: DIS: 09/03/2018 SPEC #: [id number] RECD: 09/03/18 12:42 STATUS: SASHA REQ #: [id number] MIRANDA: 09/03/18 07:[address]: Franca Greer DEPT: Surgical Specimen RECD BY: Samantha Kothari ENTERED: 09/03/18 12:43 SP TYPE: Bowel OTHR DR: Angela Leon Tissues: 1 - BIOPSY BOWEL Procedures: GROSS AND MICRO LEVEL 4 Comments: [id number]
[2018-09-03 08:30] VITALS: BP 138/88; PULSE 60; RESP 16; TEMP 36; O2SAT 96
== END 2018-09-03 09:07 | disposition home or self-care (01) ==
PROVIDERS: PCP Family Medicine; Visit Provider Surgery
PROC: 0DJD8ZZ Inspection of Lower Intestinal Tract, Via Natural or Artificial Opening Endoscopic (ICD-10-PCS; CPT 45378; principal; 2018-09-03 07:30)
DX: Z12.11 Encounter for screening for malignant neoplasm of colon (principal); K63.5 Polyp of colon; K57.30 Diverticulosis of large intestine without perforation or abscess without bleeding; G47.33 Obstructive sleep apnea (adult) (pediatric); F17.210 Nicotine dependence, cigarettes, uncomplicated
CPT/HCPCS: 45380; 88305

== ENCOUNTER 2018-09-07 01:27 | Outpatient (CLI) | payer MEDICAID, SELFPAY ==
--- NOTE | 2018-09-07 12:07 | DI.MRI_ITS ---
SYMPTOM/DIAGNOSIS: RADICULOPATHY OF ARM M54.10, NECK PAIN, NUMBNESS, TINGLING RT ARM CERVICAL SPINE MRI: 09/07 MRI examination of the cervical spine was performed according to the usual protocol. The patient has an old C5-6 anterior vertebral fusion, No significant bony signal abnormality seen in the cervical region. Images obtained through the posterior fossa show unremarkable appearance of visualized posterior fossa structures. No significant findings at C2-3 At C3-4 there is slight prominence of the disc osteophyte complex to the left of midline, no neural impingement seen. Neural foramina appear intact. At C4-5 there is marked prominence of the disc osteophyte complex to the left of midline without a focal disc herniation. There is mild cord deformity on the left anteriorly, no intra cord signal abnormality seen. At C5-6 there is mild bilateral neural foraminal narrowing. Slight prominence of disc osteophyte complex noted. At C6-7 there is moderate central canal spinal stenosis which appears to be secondary to prominence of disc osteophyte complex with probable broad based superimposed disc herniation. There is suggestion of mild intra cord signal abnormality seen at this level on sagittal T-2 weighted images and sagittal STIR images. Mild bilateral neural foraminal narrowing also noted at this level. No significant findings at C7 T1 level. CONCLUSION: Multilevel findings as described above. Please see above discussion of findings at individual levels. The most significant changes are at C6-7 where there is prominence of the disc osteophyte complex, probable superimposed broad based disc herniation, mild cord compression with moderate central canal spinal stenosis, mild intra cord signal abnormality, and mild bilateral neural foraminal stenosis.
== END 2018-09-07 01:47 ==
PROVIDERS: PCP Family Medicine; Visit Provider Family Medicine
DX: M54.2 Cervicalgia (principal); M54.12 Radiculopathy, cervical region; R20.0 Anesthesia of skin; R20.2 Paresthesia of skin; M48.02 Spinal stenosis, cervical region; M50.123 Cervical disc disorder at C6-C7 level with radiculopathy
CPT/HCPCS: 72141

== ENCOUNTER 2018-11-22 07:44 | Outpatient (CLI) | payer MEDICAID, SELFPAY ==
--- NOTE | 2018-11-22 10:48 | DI.MRI_ITS ---
SYMPTOMS/DIAGNOSIS: NEW ONSET POSITIONAL HEADACHES SINCE JUNE, OCCIPITAL REGION, NO VISUAL DISTURBANCES, H/O MIGRAINES, ? LOW CEREBROSPINAL FLUID HEADACHE, R51 BRAIN MRI: MRI examination of the brain was performed according to the usual protocol. The ventricular system is normal in appearance. There are a few scattered small focal areas of abnormal signal in periventricular white matter on T2 weighted and FLAIR imaging consistent with early microvascular ischemic changes. No other signal abnormality identified in the brain. The orbital and temporal bone structures appear intact. Susceptibility weighted imaging shows no evidence of intracranial hemorrhage. Diffusion weighted imaging shows no evidence of infarct. There is normal flow void in the [place] vasculature. CONCLUSION: Findings consistent with mild periventricular microvascular ischemic changes. No other significant abnormalities seen.
== END 2018-11-22 08:04 ==
PROVIDERS: PCP Family Medicine; Visit Provider Nurse Practitioner Adult Health
DX: R51 Headache (principal); Z86.69 Personal history of other diseases of the nervous system and sense organs; I67.82 Cerebral ischemia
CPT/HCPCS: 70551

== ENCOUNTER 2019-05-28 02:19 | Outpatient (CLI) | payer MEDICAID, SELFPAY ==
[2019-05-28 11:38] LABS: Iron 73 ug/dL (50-170)
[2019-05-28 11:51] LABS: ALT 41 U/L (14-59); AST 25 U/L (15-37); Alkaline Phosphatase 119 U/L (46-116); Anion Gap 9.7 mmol/L (3-11); BUN 12 mg/dL (7-18); Bilirubin, Total 0.4 mg/dL (0.2-1.0); CO2 27.3 mmol/L (21.0-32.0); CREATININE 1.03 mg/dL (0.55-1.02); Calcium 8.7 mg/dL (8.5-10.1); Calculated LDL 80 mg/dL (<100); Chloride 105 mmol/L (98-107); Cholesterol 158 mg/dL (<200); Estimated GFR 56.49 (mL/min/1.73m2); Ferritin 16 ng/mL (8-252); Glucose 100 mg/dL (74-106); HDL Cholesterol 55 mg/dL (40-60); Sodium 142 mmol/L (136-145); Total Protein 7.4 g/dL (6.4-8.2); Triglyceride 119 mg/dL (<150)
== END 2019-05-28 02:39 ==
PROVIDERS: PCP Family Medicine; Visit Provider Family Medicine
DX: D64.9 Anemia, unspecified (principal); Z00.00 Encounter for general adult medical examination without abnormal findings
CPT/HCPCS: 36415; 80053; 80061; 82728; 83540

== ENCOUNTER 2020-03-17 03:02 | Outpatient (CLI) | payer MEDICAID, SELFPAY ==
[2020-03-17 13:29] LABS: TSH 3.16 uIU/mL (0.36-3.74)
== END 2020-03-17 03:22 ==
PROVIDERS: PCP Family Medicine; Visit Provider Family Medicine
DX: F39 Unspecified mood [affective] disorder (principal)
CPT/HCPCS: 36415; 84443

== ENCOUNTER 2020-07-31 01:18 | Outpatient (CLI) | payer MEDICAID, SELFPAY ==
[2020-07-31 12:23] LABS: Abs Immature Grans 0.02 10^3/uL (0.0-0.06); Absolute Basophil Count 0.04 10^3/uL (0.0-0.2); Absolute Eosinophil Count 0.21 10^3/uL (0.0-0.7); Absolute Lymphocyte Count 3.11 10^3/uL (1.2-3.4); Absolute Monocyte Count 0.69 10^3/uL (0.1-0.8); Absolute Neutrophil Count 4.86 10^3/uL (1.2-6.7); Basophils % 0.4; Eosinophils % 2.4; HCT 37.5 % (36.0-46.0); Immature Grans % 0.2; Lymphocytes % 34.8; MCH 28.9 pg (27.0-33.0); MCV 90.4 fL (80-95); MPV 10.4 fL (8.0-11.0); Monocytes % 7.7; Neutrophils % 54.5; Nucleated RBC 0 %; Platelet Count 249 10^3/uL (130-400); RBC 4.15 10^6/uL (3.93-5.22); RDW 13.7 % (11.7-14.6); RDW-SD 44.9 fL; WBC 8.93 10^3/uL (4.4-10.8)
[2020-07-31 12:54] LABS: Iron 39 ug/dL (50-170)
[2020-07-31 13:06] LABS: ALT 40 U/L (14-59); AST 21 U/L (15-37); Albumin 3.6 g/dL (3.4-5.0); Alkaline Phosphatase 101 U/L (46-116); Anion Gap 13.2 mmol/L (3-11); BUN 10 mg/dL (7-18); Bilirubin, Total 0.3 mg/dL (0.2-1.0); CO2 20.8 mmol/L (21.0-32.0); Calcium 8.9 mg/dL (8.5-10.1); Calculated LDL 71 mg/dL (<100); Chloride 111 mmol/L (98-107); Cholesterol 156 mg/dL (<200); Estimated GFR 58.22 (mL/min/1.73m2); Ferritin 10 ng/mL (8-252); Glucose 92 mg/dL (74-106); HDL Cholesterol 63 mg/dL (40-60); Potassium 3.9 mmol/L (3.5-5.1); Sodium 145 mmol/L (136-145); TSH 0.09 uIU/mL (0.36-3.74); Triglyceride 113 mg/dL (<150)
== END 2020-07-31 01:19 | disposition home or self-care (01) ==
LOC: LOS 01:18
PROVIDERS: PCP Family Medicine; Visit Provider Family Medicine
DX: Z13.220 Encounter for screening for lipoid disorders (principal); D50.9 Iron deficiency anemia, unspecified; Z00.00 Encounter for general adult medical examination without abnormal findings; Z13.29 Encounter for screening for other suspected endocrine disorder
CPT/HCPCS: 36415; 80053; 80061; 82728; 83540; 84443; 85025

== ENCOUNTER 2020-12-24 01:47 | Outpatient (CLI) | payer MEDICAID, SELFPAY ==
--- NOTE | 2020-12-24 11:45 | DI.MAMMO_ITS ---
Exam(s) MAMMO SCREENING EXAM: MAMMO SCREENING CLINICAL HISTORY: SCREENING, Z12.31 TECHNIQUE: Mammograms were interpreted according to the usual protocol including computer analysis w [employer] CAD system, tomosynthesis and C-view imaging. COMPARISON: FINDINGS: The breasts are of moderate density with fairly symmetrical distribution of fibroglandular tissue. N o dominant mass or clumped microcalcification is identified in either breast. The current examinatio n is compared with previous examinations including May 2018 and there has been no gross interval ch sandy in appearance in comparison with the prior studies. IMPRESSION: No specific evidence of malignancy at this time. Routine screening examinations are suggested at yea rly intervals in this age group according to the ACS ACR guidelines. BI-RADS Category 1 - Negative Breast Density - Category B - Scattered areas of fibroglandular density
== END 2020-12-24 02:07 ==
PROVIDERS: PCP Family Medicine; Visit Provider Family Medicine
DX: Z12.31 Encounter for screening mammogram for malignant neoplasm of breast (principal)
CPT/HCPCS: 77063; 77067

== ENCOUNTER 2021-04-21 01:44 | Outpatient (CLI) | payer MEDICAID, SELFPAY ==
[2021-04-21 09:55] LABS: Abs Immature Grans 0.01 10^3/uL (0.0-0.06); Absolute Basophil Count 0.04 10^3/uL (0.0-0.2); Absolute Eosinophil Count 0.17 10^3/uL (0.0-0.7); Absolute Lymphocyte Count 3.04 10^3/uL (1.2-3.4); Absolute Monocyte Count 0.63 10^3/uL (0.1-0.8); Absolute Neutrophil Count 4.59 10^3/uL (1.2-6.7); Basophils % 0.5; HCT 36.8 % (36.0-46.0); HGB 11.2 g/dL (11.2-15.7); Immature Grans % 0.1; Lymphocytes % 35.8; MCH 24.9 pg (27.0-33.0); MCHC 30.4 % (32.0-36.0); Monocytes % 7.4; Neutrophils % 54.2; Nucleated RBC 0 %; Platelet Count 259 10^3/uL (130-400); RBC 4.49 10^6/uL (3.93-5.22); RDW 18.4 % (11.7-14.6); RDW-SD 55.2 fL; WBC 8.48 10^3/uL (4.4-10.8)
[2021-04-21 11:27] LABS: Iron 23 ug/dL (50-170)
[2021-04-21 11:40] LABS: Ferritin 8 ng/mL (8-252)
== END 2021-04-21 01:45 | disposition home or self-care (01) ==
LOC: LBO 01:44
PROVIDERS: PCP Family Medicine
DX: D50.9 Iron deficiency anemia, unspecified (principal)
CPT/HCPCS: 36415; 82728; 83540; 85025

== ENCOUNTER 2021-05-31 02:57 | Outpatient (CLI) | payer MEDICAID, SELFPAY ==
[2021-05-31 11:21] LABS: Source Nasal/Nares
[2021-05-31 13:41] LABS: COVID-19 PCR Negative (Negative)
== END 2021-05-31 02:58 | disposition home or self-care (01) ==
LOC: LBO 02:57
PROVIDERS: PCP Family Medicine; Visit Provider Surgery
DX: Z20.822 Contact with and (suspected) exposure to COVID-19 (principal); Z01.818 Encounter for other preprocedural examination
CPT/HCPCS: 87635

== ENCOUNTER 2021-06-02 08:26 | Day surgery (SDC) | payer MEDICAID, SELFPAY ==
--- NOTE | 2021-06-02 06:34 | ENDO_ITS ---
Date of service: 06/02/21 Time of Service: 10:04 Endoscopy Report DATE OF PROCEDURE: 06/02/21 PRE-OP DIAGNOSIS: Iron deficiency anemia POST-OP DIAGNOSIS: other (Gastritis, esophagitis, rectal inflammation) PROCEDURE: 1. EGD with biopsies 2. Colonoscopy with biopsies SURGEON: Franca Greer ANESTHESIA TYPE: General:No Airway ESTIMATED BLOOD LOSS: 5 PATHOLOGY: other (duodenal bx, antrum bx, esophageal bx, rectal bx) COMPLICATIONS: None DISPOSITION: same day INDICATIONS: The patient is here for Colonoscopy pre-op for further evaluation of iron deficiency anemia and unintentional weight loss. Her last screening was in 2019 and was remarkable for hyperplastic polyps. She has no family history of colon cancer. She has not had any bowel habit changes. -Discussed colonoscopy bowel prep as well as the procedure. Discussed possible complications of the procedure to include bleeding, pain, perforation, missed small lesion/polyp, sore throat, aspiration and adverse reaction to the medications. Questions were answered to patient?s satisfaction. No guarantees were implied or given.? -Discussed Upper endoscopy procedure and the need to be NPO after midnight the night prior. Discussed possible complications of the procedure to include bleeding, pain, perforation, missed small lesion/polyp/ulcers, sore throat, aspiration and adverse reaction to the medications or sedation. Questions were answered to patient?s satisfaction. No guarantees were implied or given.? PREP: Miralax/Dulcolax PROCEDURE START TIME: 10:04 PROCEDURE END TIME: 10:27 COLONOSCOPY RETRACTION TIME: 8 minutes FINDINGS: Inflammation of the duodenum, stomach and esophagus. Esophageal schatzki's ring Acute inflammation of the rectum and internal hemorrhoids PROCEDURE DESCRIPTION: After informed consent was obtained the patient was take to the procedure room and placed in a supine position. Monitors were applied and a time out was done. The patients name, date of , procedure type, allergies to medications and metal in their body was reviewed. A bite block was placed and the patient was sedated. Once sedated and comfortable the gastroscope was advanced through the oropharynx which was grossly normal into the esophagus. The proximal and mid- esophagus were normal. In the distal esophagus there was inflammation noted as well as a Schatzki's ring. The scope was advanced into the stomach and through the pylorus into the 3rd portion of the duodenum. The duodenum was noted to have some mild inflammation. Biopsies were done. The scope was retracted back into the stomach. There was mild inflammation noted in the antrum and body. Biopsies were done to rule out H. pylori. There were no ulcers. The scope was retro-flexed. The cardia and fundus were noted to be normal. There was no hiatal hernia noted. The scope was retracted back into the esophagus and biopsies were done of the GE junction to rule out Orlando's. The Z line was regular. The GE junction was at 36 cm. While the patient was still sedated they were placed in a left decubitous position. A rectal exam was done. External exam was normal. Internal exam revealed a decreased sphincter tone and no palpable masses. The scope was then introduced and retro-flexed. Grade 1 internal hemorrhoids were identified on retro-flexion. No masses or polyps were identified on retroflexion. The scope was then advanced to the cecum without difficulty. The ileocecal valve and appendiceal orifice were identified. The prep was good. The scope was advanced into the terminal ileum which was normal. The scope was then slowly retracted over 8 minutes back into the rectum. Randome biopsies were done along the entire large intestine. There was no diverticulosis noted. The scope was removed and the patient was woken up and taken back to Same day surgery in stable condition. The patient tolerated the procedure well and there were no immediate complications.
--- NOTE | 2021-06-02 06:35 | PDOC.DSDIS_ITS ---
Discharge Plan Disposition Patient Disposition: HOME Condition: Good Discharge Details Reason For Visit: Anemia Attending Provider: Franca Greer Primary Care Provider: Angela Leon [place] Meds and New Rx's Prescriptions: New omeprazole 40 mg capsule,delayed release(DR/EC) 40 mg PO BID Qty: 60 0RF Continued dextroamphetamine-amphetamine [Adderall XR] 30 mg capsule,extended release 24hr 30 mg PO QAM 0RF atorvastatin 40 mg tablet 40 mg PO DAILY 0RF fexofenadine 180 mg tablet 180 mg PO DAILY 0RF duloxetine [Cymbalta] 60 mg capsule,delayed release(DR/EC) 60 mg PO DAILY 0RF bupropion HCl [Wellbutrin XL] 300 mg tablet extended release 24 hr 300 mg PO QAM 0RF bupropion HCl 150 mg tablet extended release 24 hr 150 mg PO DAILY 0RF cholecalciferol (vitamin D3) 1,250 mcg (50,000 unit) capsule 2,000 mcg PO DAILY 0RF turmeric root extract 500 mg capsule 500 mg PO DAILY 0RF liothyronine 25 mcg tablet 50 mcg PO DAILY 0RF oxybutynin chloride 5 mg tablet extended release 24hr 5 mg PO DAILY Qty: 90 3RF duloxetine 30 mg capsule, delayed rel sprinkle 30 mg PO DAILY 0RF Emgality Pen 120 mg/mL pen injector 120 mg subcut QMONTH Qty: 1 11RF topiramate [Topamax] 100 mg tablet 100 mg PO QHS Qty: 90 3RF Rx Instructions: In addition to 50 mg for a total of 150 mg HS topiramate [Topamax] 50 mg tablet 50 mg PO QHS Qty: 90 3RF Rx Instructions: In addition to 100 mg evening dose for a total of 150 mg. prochlorperazine maleate 5 mg tablet 5 mg PO TID PRN (Reason: nausea and vomiting) Qty: 30 1RF fluticasone furoate 27.5 mcg/actuation spray,suspension 1 spray intranasal DAILY 0RF Rx Instructions: into each nostril fluticasone propionate 50 mcg/actuation spray,suspension 2 spray intranasal DAILY 0RF Rx Instructions: administer into each nostril levomefolate calcium 15 mg tablet 15 mg PO DAILY 0RF methocarbamol 750 mg tablet 750 mg PO QID 0RF eletriptan [Relpax] 40 mg tablet 40 mg PO ONCE PRN0RF aripiprazole [Abilify] 5 mg tablet 7.5 mg PO HS 0RF Discontinued ibuprofen 800 mg tablet 800 mg PO TID PRN0RF bisacodyl [Dulcolax (bisacodyl)] 5 mg tablet,delayed release (DR/EC) 5 mg PO ONCE Qty: 4 0RF Rx Instructions: Take according to provider's instructions for colonoscopy prep. polyethylene glycol 3350 17 gram/dose powder 17 g PO ONCE Qty: 238 0RF Rx Instructions: To be taken as directed by prescriber's office for colonoscopy prep. Discharge Instructions Instructions: Diet for Stomach Ulcers and Gastritis (ED), Esophagitis (DC) Additional Instructions: Findings: Inflammation of the small bowel, stomach and esophagus. Scarring in the esophagus from reflux of acid Normal colon Follow up: with PCP in 2-3 weeks Take Omeprazole 40 mg 2 x a day for 30 days and then go down to 40 mg daily Please call if you develop: fevers >101.5 Nausea or Vomiting Abdominal pain that is not transient Rectal bleeding that is more then a tbsp A hard abdomen and inability to pass gas DAY SURGERY UNIT POST ENDOSCOPY INSTRUCTIONS Instructions for everyone who is given Anesthesia: For your safety, please do the following for the next 24 Hours: a. Do not drive or operate dangerous equipment b. Do not drink alcohol beverages or use any recreational drugs for the first 24 hours or while taking pain medications. The medications in your body may have a reaction that can be dangerous. c. Do not make any important decisions or sign any important papers 1. Generally there are no restrictions on your activity after a day or so has gone by, but you may feel a bit fatigued for a few days. 2. After you arrive home you may have a light meal and return to a normal diet as you can tolerate it without feeling sick to your stomach. 3. After surgery, you may feel pain or discomfort. This should be only transient, but if it persists please contact your doctor. 4. If there are any questions regarding the findings of your procedure, please feel free to contact your doctor. 6. If you are unable to contact your doctor with a problem, contact the hospital at [phone]. 7. Continue all your regular medications unless directed otherwise. I understand the above instructions and have no questions. Signature of Patient or Responsible Adult Escort Date/Time Name of Responsible Adult Escort Signature of Nurse Date/Time Activity:: Activity as Tolerated Diet:: low acid Discharge Orders Discharge Orders: Discharge Order (Routine); Ordered 06/02/21 Ordered By: Franca Greer
[2021-06-02 08:42] VITALS: BP 151/77; PULSE 81; RESP 22; TEMP 37; O2SAT 99
[2021-06-02] MEDS: Lactated Ringers 1,000 ML 80 ML IV (09:06)
--- NOTE | 2021-06-02 09:22 | W.ANESPRE ---
General Info Date of Service Date Performed: 06/02/21 Height: 5 ft 3 in Weight: 91.5 kg Body Mass Index (BMI): 35.7 Surgical Procedure: Operation Date: 06/02/21 10:35 Proposed Procedure Side Surgeon p Colonoscopy/Gastroscopy Franca Greer MD Meds Allergies and Home Medications Allergies Allergy/AdvReac Type Severity Reaction Status Date / Time etodolac Allergy Severe Hives Verified 06/02/21 09:31 house dust Allergy Unknown Verified 06/02/21 08:52 mold Allergy Unknown Verified 06/02/21 08:52 pollen extracts Allergy Unknown Verified 06/02/21 08:52 Home Medication Medication Instructions Recorded atorvastatin 40 mg tablet 40 mg PO DAILY 02/28/18 bupropion HCl 300 mg 24 hr tablet, 300 mg PO QAM 02/28/18 extended release (Wellbutrin XL) dextroamphetamine-amphetamine ER 30 mg PO QAM 02/28/18 30 mg 24hr capsule,extend release (Adderall XR) duloxetine 60 mg capsule,delayed 60 mg PO DAILY 02/28/18 release (Cymbalta) fexofenadine 180 mg tablet 180 mg PO DAILY 02/28/18 ibuprofen 800 mg tablet 800 mg PO TID PRN 02/28/18 bupropion HCl 150 mg 24 hr tablet, 150 mg PO DAILY tab 09/04/19 extended release duloxetine 30 mg capsule,delayed 30 mg PO DAILY 11/11/19 release sprinkle turmeric root extract 500 mg 500 mg PO DAILY 04/29/20 capsule oxybutynin chloride 5 mg 5 mg PO DAILY #90 tab 06/02/20 tablet,extended release 24 hr liothyronine 25 mcg tablet 50 mcg PO DAILY tab 07/22/20 aripiprazole 5 mg tablet (Abilify) 7.5 mg PO HS tab 10/14/20 cholecalciferol (vitamin D3) 1,250 2,000 mcg PO DAILY cap 10/14/20 mcg (50,000 unit) capsule galcanezumab-gnlm 120 mg/mL 120 mg SUBCUT QMONTH #1 ml 10/14/20 subcutaneous pen injector (Emgality Pen) prochlorperazine maleate 5 mg 5 mg PO TID PRN #30 tab 04/15/21 tablet topiramate 100 mg tablet (Topamax) 100 mg PO QHS #90 tab 04/15/21 topiramate 50 mg tablet (Topamax) 50 mg PO QHS #90 tab 04/15/21 eletriptan 40 mg tablet (Relpax) 40 mg PO ONCE PRN 05/13/21 fluticasone furoate 27.5 1 spray INTRANASAL DAILY 05/13/21 mcg/actuation nasal spray,suspension fluticasone propionate 50 2 spray INTRANASAL DAILY 05/13/21 mcg/actuation nasal spray,suspension levomefolate calcium 15 mg tablet 15 mg PO DAILY 05/13/21 methocarbamol 750 mg tablet 750 mg PO QID 05/13/21 bisacodyl 5 mg tablet,delayed 5 mg PO ONCE #4 tab 05/28/21 release (Dulcolax (bisacodyl)) polyethylene glycol 3350 17 17 g PO ONCE #238 g 05/28/21 gram/dose oral powder Current Visit Medications: Current Medications Generic Name Dose Route Start Last Admin Trade Name Freq PRN Reason Stop Dose Admin Hyoscyamine Sulfate 0.125 mg 06/02/21 06:36 Hyoscyamine 0.125 Mg Sl/Oral/Chew SL DIRECTED PRN Ringer's Solution 1,000 mls @ 80 mls/hr 06/02/21 06:00 06/02/21 09:06 IV 07/01/21 23:59 80 mls/hr INFUSION KENIA Administration IV Miscellaneous Supplies 1 each 06/02/21 06:00 Iv Access IV 07/01/21 23:59 DIRECTED KENIA Ondansetron HCl 4 mg 06/02/21 06:36 Ondansetron 4 Mg/2 Ml Vial IVP Q4H PRN PRN Nausea / Vomiting Sodium Chloride 0 ml 06/02/21 06:00 Normal Saline Flush 10 Ml Syr IV 07/01/21 23:59 PRN PRN Sodium Chloride 0 ml 06/02/21 06:00 Normal Saline 10 Ml Vial IJ 07/01/21 23:59 DIRECTED PRN Sterile Water 0 ml 06/02/21 06:00 Water,Injection,Sterile 10 Ml Vial IJ 07/01/21 23:59 DIRECTED PRN PFSH Active Problems Active Problems: Problem Status Onset Code Iron deficiency anemia D50.9 Mixed stress and urge urinary incontinence N39.46 Migraine headache without aura G43.009 Diverticulosis K57.90 Status post arthroscopy of right knee Z98.890 S/P colonoscopy ~09/03/18 Z98.890 Nephrolithiasis ~04/2018 N20.0 Status post arthroscopy of right shoulder Z98.890 History of detached retina repair Z98.890, Z86.69 Status post nasal surgery Z98.890 Status post cervical spinal fusion Z98.1 Migraine G43.909 Obesity E66.9 Smoker F17.200 Hereditary hemochromatosis E83.110 Mood disorder F39 MAGDALENO on CPAP G47.33, Z99.89 Right ACL tear S83.511A Medical History Medical History Allergic rhinitis Chronic recurrent major depressive disorder Depression Family history of epilepsy Fusion of spine, cervical region (~2012) History of retinal detachment (~1996) Repair 1996 Tobacco use Medical History Comments:: BP: 158/80 137/79 Home BP readings (Hx of elevated BP and not on any RX). Pt states PONV if nothing on board. Detached retina surgery, pt states she was a delayed emergence (1996) Surgical History Surgical History History of arthroscopic knee surgery (~03/13/18) History of shoulder surgery (~2005) S/P reconstruction procedure (~2005) Nose Tobacco Smoking/Tobacco Use Status: Current every day Tobacco Type: cigarettes Smoking cigarettes per day: 5 Years smoked: 30 Alcohol Alcohol Intake: current Alcohol intake frequency: holidays/special occasions only Alcohol type: hard liquor Substance Use Substance use: Never Substance use type: marijuana Details: daily user, last 06/01/21. Vital Signs and Lab Results Vital Signs Most Recent Vital Signs in EMR: Most Recent Vital Signs Temp Pulse Resp BP Pulse Ox 37.0 C 81 22 151/77 H 99 06/02/21 08:42 06/02/21 08:42 06/02/21 08:42 06/02/21 08:42 06/02/21 08:42 Lab Results Blood Type / Crossmatch: No Data to Display Complete Blood Count: No Data to Display Complete Metabolic Panel: No Data to Display Liver Function Panel: No Data to Display Coagulation Panel: No Data to Display Cardiac Panel: No Data to Display Arterial Blood Gas: No Data to Display Venous Blood Gas: No Data to Display Pancreas Panel: No Data to Display Thyroid Panel: No Data to Display Infectious Disease: Coronavirus (COVID-19)(PCR) Negative (Negative) 05/31/21 10:25 05/31/21 Coronavirus 2019 Source Nasal/Nares 05/31/21 10:25 05/31/21 Blood Cultures: No Data to Display Toxicology Panel: No Data to Display Panel: No Data to Display Anesthesia Assessment and Plan Anesthesia History Personal History: Delayed Emergence Family History: No Family History of Anesthesia Complications Exercise Tolerance Exercise Tolerance: Metabolic Equivalents>4 Pertinent Negatives Pertinent Negatives: No Symptoms of GERD Cardiac & Pulmonary Exam Cardiac Exam: Normal S1/S2 Heart Sounds Pulmonary Exam: Clear Bilateral Breath Sounds Implantable Cardiac Device Does patient have a Pacemaker or an ICD?: No Airway Exam Known Difficult Airway: No Mallampati Class: 2 Mouth Opening: Normal (> 3cm) Thyromental Distance: Greater than 3 cm Neck Range of Motion: Full ROM and History of Cervical Fusion Neck Circumference: Normal Teeth Condition: Normal Dentition ASA Classification ASA Score: ASA 2 Emergency Case?: No NPO Status NPO Status: NPO Clears >2 hours, Solids >8 hours Status Status: Not Relevant due to Medical History Anesthesia Plan Resuscitation Status: Full Code Anesthesia Technique: General Anesthesia Airway Planned: Natural Airway Monitors Used: Standard Monitors
[2021-06-02 09:27] VITALS: BMI 35.7
--- NOTE | 2021-06-02 10:05 | STOM_PTH ---
PATIENT: Valerie Mccann LOC: [facility] U#:[id number] AGE/SX: 55/F ROOM: RE06/02/[address]: Franca Greer MD : 1965 BED: DIS: 06/02/2021 SPEC #: [id number] RECD: 06/02/21 12:50 STATUS: SASHA RE #: [id number] MIRANDA: 06/02/21 10:[address]: Franca Greer DEPT: Surgical Specimen RECD BY: Samantha Kothari ENTERED: 06/02/21 12:51 SP TYPE: STOMACH OTHR DR: Angela Leon Tissues: 1 - BIOPSY BOWEL 2 - STOMACH BIOPSY 3 - ESOPHAGUS BIOPSY 4 - BIOPSY BOWEL Procedures: GROSS AND MICRO LEVEL 4 IMMUNOPEROXIDASE STAIN Comments: [id number]
[2021-06-02 10:39] VITALS: BP 121/77; PULSE 69; RESP 18; TEMP 36.6; O2SAT 99
[2021-06-02 11:06] VITALS: BP 136/84; PULSE 69; RESP 20; TEMP 36.7; O2SAT 98
--- NOTE | 2021-06-02 11:15 | W.ANESPOSTOP ---
Postoperative Evaluation Date, Time and Location Date Performed: 06/02/21 Time Performed: 11:15 Patient Location: Day Surgery Unit Vital Signs Most Recent Imported Vital Signs: Most Recent Vital Signs Temp Pulse Resp BP Pulse Ox 36.6 C 69 18 121/77 99 06/02/21 10:39 06/02/21 10:39 06/02/21 10:39 06/02/21 10:39 06/02/21 10:39 Pain Score Most Recent Pain Score: Most Recent Pain Score Pain Level 0 06/02/21 10:39 Assessment Mental Status: Awake (Alert & Oriented to Patient Baseline) Airway and Respiratory Function: Patent airway with normal (patient baseline) respiratory exam Cardiovascular Function: Hemodynamically Stable Hydration Status: Adequately Hydrated Nausea & Vomiting: No Nausea or Vomiting Pain: Pt. Denies Any Pain Peripheral Nerve Block: Patient did not receive a nerve block Postoperative Comments:: Discussed leg/lower body shaking. Pt. denies any exisitn seizure or limb movement disorder. This was likely due to scope stimulation. Answered questions and no ongoing concerns. Pt. will seek medical care if this becomes a more serious concern.
== END 2021-06-02 11:29 | disposition home or self-care (01) ==
LOC: SUR 08:26
PROVIDERS: PCP Family Medicine; Visit Provider Surgery
PROC: (CPT 45380; principal; 2021-06-02 10:30)
DX: D50.9 Iron deficiency anemia, unspecified (principal); K29.70 Gastritis, unspecified, without bleeding; K20.90 Esophagitis, unspecified without bleeding; K29.80 Duodenitis without bleeding; K22.2 Esophageal obstruction; K62.89 Other specified diseases of anus and rectum; K64.0 First degree hemorrhoids; K22.89 Other specified disease of esophagus; K63.89 Other specified diseases of intestine
CPT/HCPCS: 45380; 43239; 88305; 88361

== ENCOUNTER 2021-07-24 14:36 | Outpatient (REF) | payer MEDICAID, SELFPAY ==
[2021-07-26 14:35] LABS: Helicobacter pylori Ag, Feces Negative (Negative)
== END 2021-07-24 14:37 | disposition home or self-care (01) ==
LOC: LBN 14:36
PROVIDERS: PCP Family Medicine; Visit Provider Surgery
DX: A04.8 Other specified bacterial intestinal infections (principal)
CPT/HCPCS: 87338

== ENCOUNTER 2021-08-20 01:15 | Outpatient (CLI) | payer MEDICAID, SELFPAY ==
--- OUTSIDE RECORDS SUMMARY | 2021-08-20 01:16 | XMS_ITS ---
:1965 Author Care Team Providers Name Role Phone MARIA EUGENIA CLARKE MD Primary Care Provider [phone] Allergies None recorded. Medications Name Status Start Date Stop Date ? ? Abilify 2 mg tablet Active ? Not availabl e Take 1 tablet every day by oral route. Adderall XR 20 mg capsule,extended release Active ? Not available Take 1 capsule every day by oral route. Ekta Allergy Active ? Not available atorvastatin 40 mg tablet Active ? Not av ailable Take 1 tablet every day by oral route. cyclobenzaprine 10 mg tablet Completed ? Take 1 tablet 3 times a day by oral route. Cymbalta 60 mg capsule,delayed release Active ? Not available Take 1 capsule every day by oral route. fluticasone 500 mcg-salmeterol 50 mcg/dose blistr powdr for inha lation Active ? Not available Inhale 1 puff twice a day by inhalation route. ibuprofen 800 mg tablet Active ? Not avai lable Take 1 tablet 3 times a day by oral route. Mirena Active ? Not available prochlorperazine Active ? Not available 5 mg tablet propranolol 60 mg tablet Active ? Not gerry ilable Take 1 tablet twice a day by oral route. rizatriptan 10 mg (Dis) tablet Active ? N ot available Take by oral route. Topamax 50 mg tablet Active ? Not availab le Take 1 tablet twice a day by oral route. Wellbutrin XL 300 mg 24 hr tablet, extended release Active ? Not available Take 1 tablet every day by oral route. Problems Name Status Onset Date Source ? Mixed Hyperlipidemia Active 05/01/2019 ? Hereditary Hemochromatosis Active 05/01/2019 ? Obesity Active 05/01/2019 ? Anemia Active 05/01/2019 ? Mood Disorder Active 05/01/2019 ? Smoker Active 05/01/2019 ? Obstructive Sleep Apnea Syndrome Active 05/01/2019 ? Migraine Active 05/01/2019 ? Allergic Rhinitis Active 05/01/2019 ? Calculus in Renal Pelvis Active 05/01/2019 ? Kidney Stone Active 05/01/2019 ? Rupture of Anterior Cruciate Ligament Active 05/01/2019 ? Range of Joint Movement Increased Active 05/01/2019 ? Insomnia Active 06/06/2019 ? Procedures None recorded. Results Lab Results None recorded. Past Encounters None recorded. Social History Tobacco Smoking Status Current Every Day Smoker Notes: 5 c igs daily Vaccine List None recorded. Plan of Care Reminders Provider Appointments None recorded. ? ? Lab None recorded. ? ? Referral None recorded. ? ? Procedures None recorded. ? ? Surgeries None recorded. ? ? Imaging None recorded. ? ? Vitals Height Weight BMI 160.02 cm 108.86 kg 42.5 kg/m2
[2021-08-20 12:33] LABS: Abs Immature Grans 0.02 10^3/uL (0.0-0.06); Absolute Basophil Count 0.05 10^3/uL (0.0-0.2); Absolute Eosinophil Count 0.38 10^3/uL (0.0-0.7); Absolute Lymphocyte Count 2.75 10^3/uL (1.2-3.4); Absolute Monocyte Count 0.52 10^3/uL (0.1-0.8); Absolute Neutrophil Count 4.54 10^3/uL (1.2-6.7); Basophils % 0.6; Eosinophils % 4.6; HCT 37.5 % (36.0-46.0); HGB 11.6 g/dL (11.2-15.7); Immature Grans % 0.2; Lymphocytes % 33.3; MCH 26.5 pg (27.0-33.0); MCHC 30.9 % (32.0-36.0); MCV 86 fL (80-95); MPV 10.5 fL (8.0-11.0); Monocytes % 6.3; Platelet Count 265 10^3/uL (130-400); RBC 4.38 10^6/uL (3.93-5.22); RDW-SD 56.8 fL; WBC 8.26 10^3/uL (4.4-10.8)
[2021-08-20 13:44] LABS: Iron 50 ug/dL (50-170)
[2021-08-20 13:49] LABS: ALT 40 U/L (14-59); AST 19 U/L (15-37); Albumin 3.6 g/dL (3.4-5.0); Alkaline Phosphatase 119 U/L (46-116); Anion Gap 10.8 mmol/L (3-11); BUN 11 mg/dL (7-18); Bilirubin, Total 0.2 mg/dL (0.2-1.0); CO2 23.2 mmol/L (21.0-32.0); Calculated LDL 74 mg/dL (<100); Chloride 110 mmol/L (98-107); Cholesterol 146 mg/dL (<200); Ferritin 9 ng/mL (8-252); Glucose 98 mg/dL (74-106); HDL Cholesterol 65 mg/dL (40-60); Potassium 4.6 mmol/L (3.5-5.1); Sodium 144 mmol/L (136-145); TSH 0.15 uIU/mL (0.36-3.74); Total Protein 7.5 g/dL (6.4-8.2); Triglyceride 38 mg/dL (<150)
== END 2021-08-20 01:16 | disposition home or self-care (01) ==
LOC: LOS 01:15
PROVIDERS: PCP Family Medicine; Visit Provider Family Medicine
DX: E83.110 Hereditary hemochromatosis (principal); E78.2 Mixed hyperlipidemia
CPT/HCPCS: 36415; 80053; 80061; 82728; 83540; 84443; 85025

== ENCOUNTER → 2021-10-27 18:46 | Outpatient (CLI) | payer MEDICAID, SELFPAY ==
--- NOTE | 2021-10-27 16:45 | DI.RAD_ITS ---
Exam(s) XR HIP RT AP LAT ONLY EXAM: XR HIP RT AP LAT ONLY CLINICAL HISTORY: RT HIP PAIN--SCIATICA, RT SIDE--M54.31. TECHNIQUE: 2D digital imaging was performed. Two views COMPARISON: CR,XR XR SACROILIAC JOINTS from 10/27/2021 FINDINGS: BONES: No acute fracture is present. No bony destructive lesion is seen. JOINTS: No dislocation present. The right hip joint is well maintained. There is minimal acetabular spurring. SOFT TISSUE: Normal. IMPRESSION: Minimal degenerative changes. DATA REPOSITORY: RADIATION DOSE DELIVERED:
--- NOTE | 2021-10-27 16:45 | DI.RAD_ITS ---
Exam(s) XR SACROILIAC JOINTS EXAM: XR SACROILIAC JOINTS CLINICAL HISTORY: RT SI PAIN--LOW BACK PAIN--M54.50. TECHNIQUE: 2D digital imaging was performed. Three views COMPARISON: No exams were available for comparison FINDINGS: Bones: No fracture is present. No bony destructive lesion is seen. Alignment is satisfactory. The pubic symphysis is unremarkable. SI Joint: There is bilateral spurring of the SI joints. No fusion, erosions or sclerosis is seen. There is severe narrowing of the L4-5 disc space. Soft Tissue: Normal. IMPRESSION: Degenerative changes of the SI joints. DATA REPOSITORY: RADIATION DOSE DELIVERED:
--- NOTE | 2021-10-27 17:46 | DI.VRAD_ITS ---
PROCEDURE INFORMATION: Exam: XR Right Hip Exam date and time: 10/27/2021 5:20 PM Age: 55 years old Clinical indication: Other: Sciatica, right side TECHNIQUE: Imaging protocol: Radiologic exam of the Right hip. Views: 2 or 3 views hip with pelvis when performed. COMPARISON: XR SACROILIAC JOINTS 10/27/2021 5:08 PM FINDINGS: Normal anatomic alignment and bone density. No acute fracture, dislocation, or aggressive skeletal lesion. Joint spaces are preserved. No soft tissue swelling. IMPRESSION: No acute or discrete findings to explain the patient's symptoms. Dictated and Authenticated by: Aaron Conner MD. Ordering:SAMANTHA Justin MD
--- NOTE | 2021-10-27 17:47 | DI.VRAD_ITS ---
PROCEDURE INFORMATION: Exam: XR Bilateral Sacroiliac Joints Exam date and time: 10/27/2021 5:08 PM Age: 55 years old Clinical indication: Other: Low back pain TECHNIQUE: Imaging protocol: XR Bilateral XR of the sacroiliac joints. Views: 3 or more views. COMPARISON: CT renal colic wo 05/02/2018 11:41 AM FINDINGS: Mild degenerative changes of the bilateral sacroiliac joints. Preserved anatomic alignment and bone density. No acute fracture, dislocation, or aggressive skeletal lesion. No soft tissue swelling. IMPRESSION: Mild degenerative changes of the bilateral sacroiliac joints without acute skeletal pathology. Dictated and Authenticated by: Aaron Conner MD. Ordering:SAMANTHA Justin MD
== END ==
PROVIDERS: PCP Family Medicine; Visit Provider Physician Assistant
DX: M54.31 Sciatica, right side (principal); M46.1 Sacroiliitis, not elsewhere classified
CPT/HCPCS: 72202; 73502

== ENCOUNTER 2021-11-05 16:27 | Emergency (ER) | payer MEDICAID, SELFPAY ==
[2021-11-05 16:38] VITALS: BP 152/79; PULSE 93; RESP 16; TEMP 36.9; O2SAT 98
--- NOTE | 2021-11-05 17:21 | ED.GENADUL_ITS ---
Discharge Plan Disposition Patient Disposition: HOME Condition: Stable Discharge Details Clinical Impression: Sciatica Primary Care Provider: Angela Leon ED Provider: Alysha Garcia Home Meds and New Rx's Prescriptions: New prednisone 10 mg tablet See Rx Instructions .ROUTE .COMPLEX Qty: 63 0RF Rx Instructions: Take 6 tabs daily for 3 days, then 5 tabs daily for 3 days, then 4 tabs daily for 3 days, then 3 tabs daily for 3 days, then 2 tabs daily for 3 days, then 1 tab daily for 3 days. methocarbamol 500 mg tablet 500 mg PO Q6H PRN (Reason: muscle spasm) Qty: 14 0RF Continued dextroamphetamine-amphetamine [Adderall XR] 30 mg capsule,extended release 24hr 30 mg PO QAM atorvastatin 40 mg tablet 40 mg PO DAILY fexofenadine 180 mg tablet 180 mg PO DAILY duloxetine [Cymbalta] 60 mg capsule,delayed release(DR/EC) 60 mg PO DAILY bupropion HCl [Wellbutrin XL] 300 mg tablet extended release 24 hr 300 mg PO QAM bupropion HCl 150 mg tablet extended release 24 hr 150 mg PO DAILY turmeric root extract 500 mg capsule 500 mg PO DAILY liothyronine 25 mcg tablet 50 mcg PO DAILY baclofen 5 mg tablet 5 mg PO TID Qty: 20 0RF Rx Instructions: May take 1 tab every 8 hours as needed for pain/muscle spasm duloxetine 30 mg capsule, delayed rel sprinkle 30 mg PO DAILY indomethacin 50 mg capsule 50 mg PO TID Rx Instructions: administer with food or milk topiramate [Topamax] 100 mg tablet 100 mg PO QHS Qty: 90 3RF prochlorperazine maleate 5 mg tablet 5 mg PO TID PRN (Reason: nausea and vomiting) Qty: 30 1RF levomefolate calcium 15 mg tablet 15 mg PO DAILY omeprazole 40 mg capsule,delayed release(DR/EC) 40 mg PO BID 90 Days Qty: 180 2RF Emgality Pen 120 mg/mL pen injector 120 mg subcut QMONTH Qty: 1 11RF oxybutynin chloride 5 mg tablet extended release 24hr 5 mg PO DAILY Qty: 90 3RF No Action fluticasone propionate 50 mcg/actuation spray,suspension 2 spray INTRANASAL DAILY Label Comments: USE TWO SPRAYS NASALLY EVERY DAY NEEDED aripiprazole 15 mg tablet 0.5 tab PO HS cholecalciferol (vitamin D3) [Vitamin D3] 50 mcg (2,000 unit) Tablet 50 mcg PO DAILY methocarbamol 750 mg tablet 750 mg PO QID PRN Discharge Instructions Instructions: Sciatica (ED) Additional Instructions: Alternate ice and heat to the affected area(s) several times daily for 20 minutes at a time. Continue your Indocin as needed and directed. You can also take [id number] Tylenol as needed and directed for pain. Take caution when taking NSAIDs and steroids as they can increase your risk of an ulcer. Prescriptions for steroids and muscle relaxers have been sent electronically to your pharmacy. Follow-up with your primary care doctor in 1 week and for referral for additional imaging if your symptoms does not improve or worsen for consideration for outpatient lumbar spine MRI.. Return to the emergency department with any worsening or new concerning symptoms such as bowel or bladder incontinence, leg weakness, worsening pain or any other concerns. Discharge Data Discharge Date/Time-TO BE ENTERED AT DEPARTURE: 11/05/21 18:31 Discharge Physician: Alysha Garcia Medical Decision Making 55-year-old female with a history of obesity, sciatica, anxiety, depression, migraine, obstructive sleep apnea who presents for right lower back and buttock pain for the past few weeks and recently diagnosed with sciatica and treated with muscle relaxers and low-dose steroids without relief. No cauda equina symptoms. Her vitals are within normal limits and she appears fairly comfortable. Her abdomen is soft and nontender. Her back is normal to inspection. She is neurovascularly intact without focal deficits. She had outpatient back and hip xrays n 10/27 which noted degenerative changes but no other acute findings. As she had no report of fall, do not see indication for CT imaging to rule out occult fracture. Discussed with patient that her symptoms could be secondary to arthritis and associated symptoms with sciatica. Other possibilities include lumbar spine osteoarthritis, piriformis syndrome, disc herniation. Discussed that Medrol Dosepak is a low dose of steroid and would recommend treatment with a higher dose of steroid for a longer period of time. She has an allergy to etodolic but no history of allergy to Toradol. We will give Toradol IM and a dose of 60 mg p.o. prednisone. Prescriptions for prednisone and methocarbamol sent electronically to her [facility]. Tramadol bottle to go given. Advised to follow up with the primary care doctor for re-evaluation and for referral for additional imaging such as MRI lumbar spine if her symptoms do not improve or worsen. Usual and customary return precautions given prior to discharge. Medical Records Medical records reviewed: Yes I reviewed the patient's medical records. Medical records narrative: 10/27/21 XR HIP RT AP ? LAT ONLY CLINICAL HISTORY: ? RT HIP PAIN--SCIATICA, RT SIDE--M54.31.? TECHNIQUE:? 2D digital imaging was performed.? Two views COMPARISON:? CR,XR XR SACROILIAC JOINTS from 10/27/2021 FINDINGS: BONES: No acute fracture is present. No bony destructive lesion is seen. JOINTS: No dislocation present. The right hip joint is well maintained.? There is minimal acetabular spurring. SOFT TISSUE: Normal. IMPRESSION: Minimal degenerative changes.? 10/27/21 XR SACROILIAC JOINTS CLINICAL HISTORY: ? RT SI PAIN--LOW BACK PAIN--M54.50.? TECHNIQUE:? 2D digital imaging was performed.? Three views COMPARISON:? No exams were available for comparison FINDINGS: Bones:? No fracture is present. No bony destructive lesion is seen. Alignment is satisfactory. ? The pubic symphysis is unremarkable. SI Joint: There is bilateral spurring of the SI joints.? No fusion, erosions or sclerosis is seen. There is severe narrowing of the L4-5 disc space. Soft Tissue:? Normal. IMPRESSION: Degenerative changes of the SI joints. HPI General Mode of arrival: ambulatory . Date/Time Provider Initiated Documentation: 11/05/21 16:33 . Limitations to Documentation: no limitations . Information obtained by: patient . HPI Narrative: Pt is a 55yo who presents to the ED with a complaint of right lower back, buttock and right thigh pain for the past 3 weeks. Patient states she has a history of sciatica and states she has had a flareup of her sciatica since October 14. She states she was seen at [facility] earlier this month and placed on methocarbamol and NSAIDs with some relief. She states she then followed up again at [facility] and was started on a Medrol Dosepak which briefly helped and then pain returned. She states she is now taking Indocin with out relief. She denies any injury. She states she was referred for x-rays earlier this month which she was told were unremarkable. She denies any fever, bowel or bladder incontinence, saddle anesthesia or leg weakness. She does admit to occasional tingling in her right leg and has been using a cane with ambulating due to pain which is much worse with standing and walking. Related Data Home Medications Medication Instructions Recorded Confirmed atorvastatin 40 mg tablet 40 mg PO DAILY 02/28/18 11/05/21 bupropion HCl 300 mg 24 hr tablet, 300 mg PO QAM 02/28/18 11/05/21 extended release (Wellbutrin XL) dextroamphetamine-amphetamine ER 30 mg PO QAM 02/28/18 11/05/21 30 mg 24hr capsule,extend release (Adderall XR) duloxetine 60 mg capsule,delayed 60 mg PO DAILY 02/28/18 11/05/21 release (Cymbalta) fexofenadine 180 mg tablet 180 mg PO DAILY 02/28/18 11/05/21 bupropion HCl 150 mg 24 hr tablet, 150 mg PO DAILY 09/04/19 11/05/21 extended release duloxetine 30 mg capsule,delayed 30 mg PO DAILY 11/11/19 11/05/21 release sprinkle turmeric root extract 500 mg 500 mg PO DAILY 04/29/20 11/05/21 capsule liothyronine 25 mcg tablet 50 mcg PO DAILY 07/22/20 11/05/21 prochlorperazine maleate 5 mg 5 mg PO TID PRN nausea and 04/15/21 11/05/21 tablet vomiting #30 tabs topiramate 100 mg tablet (Topamax) 100 mg PO QHS #90 tabs 04/15/21 11/05/21 levomefolate calcium 15 mg tablet 15 mg PO DAILY 05/13/21 11/05/21 omeprazole 40 mg capsule,delayed 40 mg PO BID 90 days #180 caps 08/03/21 11/05/21 release galcanezumab-gnlm 120 mg/mL 120 mg subcut QMONTH #1 mL 08/26/21 11/05/21 subcutaneous pen injector (Emgality Pen) oxybutynin chloride 5 mg 5 mg PO DAILY #90 tabs 09/21/21 11/05/21 tablet,extended release 24 hr baclofen 5 mg tablet 5 mg PO TID #20 tabs 10/29/21 11/05/21 indomethacin 50 mg capsule 50 mg PO TID 11/03/21 11/05/21 aripiprazole 15 mg tablet 0.5 tab PO HS 11/05/21 11/05/21 cholecalciferol (vitamin D3) 50 50 mcg PO DAILY 11/05/21 11/05/21 mcg (2,000 unit) tablet (Vitamin D3) fluticasone propionate 50 2 spray intranasal DAILY 11/05/21 11/05/21 mcg/actuation nasal spray,suspension methocarbamol 500 mg tablet 500 mg PO Q6H PRN muscle spasm #14 11/05/21 tabs methocarbamol 750 mg tablet 750 mg PO QID PRN 11/05/21 11/05/21 prednisone 10 mg tablet See Rx Instructions .Route 11/05/21 .COMPLEX #63 tabs Previous Rx's Medication Instructions Recorded prochlorperazine maleate 5 mg 5 mg PO TID PRN nausea and 04/15/21 tablet vomiting #30 tabs topiramate 100 mg tablet (Topamax) 100 mg PO QHS #90 tabs 04/15/21 omeprazole 40 mg capsule,delayed 40 mg PO BID 90 days #180 caps 08/03/21 release galcanezumab-gnlm 120 mg/mL 120 mg subcut QMONTH #1 mL 08/26/21 subcutaneous pen injector (Emgality Pen) oxybutynin chloride 5 mg 5 mg PO DAILY #90 tabs 09/21/21 tablet,extended release 24 hr baclofen 5 mg tablet 5 mg PO TID #20 tabs 10/29/21 methocarbamol 500 mg tablet 500 mg PO Q6H PRN muscle spasm #14 11/05/21 tabs prednisone 10 mg tablet See Rx Instructions .Route 11/05/21 .COMPLEX #63 tabs Allergies Allergy/AdvReac Type Severity Reaction Status Date / Time etodolac Allergy Severe Hives Verified 11/05/21 16:41 house dust Allergy Unknown Verified 11/05/21 16:41 mold Allergy Unknown Verified 11/05/21 16:41 pollen extracts Allergy Unknown Verified 11/05/21 16:41 General Stated Complaint: Orthopedic VALENTIN: 4 Review of Systems All systems reviewed & are unremarkable except as noted in HPI and below Constitutional Constitutional: Denies chills, Denies excessive sweating, Denies fatigue, Denies fever(s), Denies weakness and Denies weight loss Eyes Eyes: Reports system reviewed and no additional complaints, except as documented and Denies blurry vision ENT Ears, Nose, Mouth, and Throat: Denies vertigo, Denies dizziness, Denies otalgia, Denies nasal congestion, Denies sore throat and Denies throat swelling Cardiovascular Cardiovascular: Denies chest pain, Denies syncope, Denies rapid heart rate and Denies dyspnea Respiratory Respiratory: Denies chest congestion, Denies cough, Denies pain on inspiration and Denies dyspnea Gastrointestinal Gastrointestinal: Denies abdominal pain, Denies diarrhea and Denies vomiting Genitourinary Genitourinary: Denies hematuria, Denies dysuria and Denies flank pain Musculoskeletal Musculoskeletal: Reports back pain and Denies joint swelling Comments: R buttock and thigh pain Integumentary/Breasts Skin/Breast: Denies lesions and Denies rash Neurologic Neurologic: Denies behavioral changes, Denies confusion, Denies vertigo, Denies dizziness, Denies syncope, Denies localized weakness and Denies weakness Psychiatric Psychiatric: Denies behavioral changes, Denies confusion and Denies depression Endocrine Endocrine: Denies excessive sweating and Denies fatigue Hematologic/Lymphatic Hematologic/Lymphatic: Denies easy bruising and Denies lymphadenopathy Allergic/Immunologic Allergic/Immunologic: Denies throat swelling PFSH All Active Problems (Updated 11/05/21 @ 18:16 by Alysha Garcia DO) Sciatica (Acute) Low back pain (Acute) Sciatic leg pain (Acute) Sciatica of right side (Acute) Helicobacter pylori gastrointestinal tract infection (Acute) Iron deficiency anemia (Acute) Mixed stress and urge urinary incontinence (Acute) Migraine headache without aura (Acute) Diverticulosis (Acute) Nephrolithiasis (Chronic ~04/2018) Migraine (Chronic) Obesity (Chronic) Smoker (Chronic) Hereditary hemochromatosis (Chronic) Mood disorder (Chronic) long history of depression MAGDALENO on CPAP (Chronic) Right ACL tear (Acute) Date of injury: 09/28/17 Medical History Allergic rhinitis Chronic recurrent major depressive disorder Depression Family history of epilepsy Fusion of spine, cervical region (~2012) History of retinal detachment (~1996) Repair 1996 Sciatica Right Tobacco use Surgical History History of detached retina repair Left eye [facility] [place] - 1996 S/P colonoscopy (~09/03/18) 1992- done for diarrhea. Diagnosed with IBS-D S/P reconstruction procedure (~2005) Nose Status post arthroscopy of right knee Right knee arthroscopy with ACL debridement DOS: 03/14/18 Dr. Man Status post arthroscopy of right shoulder Distal clavicle excision 2005 Status post cervical spinal fusion C4-5 fusion 2013 Status post nasal surgery Nose reconstruction 2005 Family History Mother Mitral valve prolapse History of supraventricular tachycardia History of atrial fibrillation Dementia Hereditary hemochromatosis Father Hypertension Hyperlipidemia Glaucoma Colorectal polyps Sister No problems noted. Social History Smoking/Tobacco Use Status: Current every day Tobacco Type: cigarettes Years smoked: 30 Smoking risk assessment performed?: Yes Alcohol Intake: current Alcohol Intake frequency: holidays/special occasions only Alcohol type: hard liquor Drug use: Daily Substance use type: marijuana Details: daily user, last 06/01/21. Do you feel safe at home: Yes Do you feel safe in your relationship?: Yes Additional Social history: Lives with Mother Exam Const General: cooperative and healthy appearing Orientation: alert and awake HENMT Head: normal to inspection Ears: hearing grossly normal bilaterally and external ears normal General nose exam: external nose normal Face and sinus: normal facial exam Mouth: oral mucosae normal Eyes General: appearance normal, both eyes and all related structures Eyelids: eyelids normal EOM: EOM intact bilaterally Neck Neck: normal visual inspection Lymphatic: no lymphadenopathy noted Chest Chest: normal inspection of the chest Resp Effort & Inspection: normal respiratory effort and able to speak in complete sentences Auscultation: clear to auscultation bilaterally Cardio Rate: regular rate Rhythm: regular rhythm GI Inspection: normal to inspection Palpation: soft, not firm, no guarding, no hepatosplenomegaly, no masses and nontender Auscultation: normal bowel sounds Back/Spine/Pelvis Back: no CVA tenderness Thoracic/Lumbar Spine: thoracic and lumbar spine normal to inspection and No lumbar spinal tenderness Sacroiliac joints: on the right nontender Sacrum: no ecchymosis and no erythema Skin General skin exam: no rashes or lesions noted Neuro General: patient alert and patient awake Cognition: normal cognition Speech: speech normal Gait: antalgic Motor: muscle tone normal throughout and strength 5/5 throughout Sensory Exam: no sensory deficits noted DTR's: Rt Patellar: 1+, Lt Patellar: 1+, Rt Ankle: 1+ and Lt Ankle: 1+ Plantar Reflexes: Equivocal: bilateral (negative babinski b/l ) Extrem Other: b/l DP/PT pulses intact. Psych Appearance: grossly normal Mental Status: mental status grossly normal Speech and Movement: speech and movement normal Affect: normal affect Thought Process: normal Course Vital Signs Vital signs: Vital Signs Temperature 98.4 F 11/05/21 16:38 Pulse 93 H 11/05/21 16:38 Respiratory Rate 16 11/05/21 16:38 Blood Pressure 152/79 H 11/05/21 16:38 Pulse Oximetry 98 11/05/21 16:38 Temperature 98.4 F 11/05/21 16:38 Temperature Source Temporal Artery Scan 11/05/21 16:38 Pulse 93 H 11/05/21 16:38 Respiratory Rate 16 11/05/21 16:38 Respiratory Effort Non-Labored 11/05/21 16:41 Blood Pressure 152/79 H 11/05/21 16:38 Blood Pressure Position Supine 11/05/21 16:38 Pulse Oximetry 98 11/05/21 16:38 Oxygen Delivery Method Room Air 11/05/21 16:38 Oxygen Flow Rate 0 11/05/21 16:38 Pain Level 8 11/05/21 16:38 PAWSS Have you Been Recently Intoxicated or Drunk Within the Last 30 days?: No Have you Ever Experienced Previous Episodes of Alcohol Withdrawal?: No Have you ever Experienced Withdrawal Seizures?: No Have you ever Experienced Delirium Tremens(DT)s?: No Have you ever undergone Alcohol Rehabilitation Treatment (i.e, inpt ot outpatient treatment programs)?: No Have you ever Experienced Blackouts?: No Have you ever Combined Alcohol with other Downers within the last 90 days?: No Have you ever Combined Alcohol with any other Substance of Abuse during the last 90 days?: No Positive Blood Alcohol level on Presentation? [PCS.BAL]: No Evidence of Increased Autonomic Activity (i.e. HR>120, tremor, sweating, agitation, nausea)?: No Result: 0
[2021-11-05] MEDS: Ketorolac 60 MG/2 ML VIAL IM (17:54)
[2021-11-05] MEDS: predniSONE 20 MG TAB 60 MG PO (17:55)
== END 2021-11-05 18:31 | disposition home or self-care (01) ==
PROVIDERS: Emergency Provider Physician Assistant; PCP Family Medicine
DX: M54.31 Sciatica, right side (principal); F17.210 Nicotine dependence, cigarettes, uncomplicated
CPT/HCPCS: 96372; 99284; J1885; J7512

== ENCOUNTER 2021-11-06 18:01 | Emergency (ER) | payer MEDICAID, SELFPAY ==
[2021-11-06 18:05] VITALS: BP 137/71; PULSE 90; RESP 17; TEMP 37; O2SAT 97
--- NOTE | 2021-11-06 18:35 | W.ED.GENAD ---
Discharge Plan Disposition Patient Disposition: HOME Condition: Stable Discharge Details Clinical Impression: Sciatica of right side Primary Care Provider: Angela Leon ED Provider: Brandon George Home Meds and New Rx's Prescriptions: No Action dextroamphetamine-amphetamine [Adderall XR] 30 mg capsule,extended release 24hr 30 mg PO QAM atorvastatin 40 mg tablet 40 mg PO DAILY fexofenadine 180 mg tablet 180 mg PO DAILY duloxetine [Cymbalta] 60 mg capsule,delayed release(DR/EC) 60 mg PO DAILY bupropion HCl [Wellbutrin XL] 300 mg tablet extended release 24 hr 300 mg PO QAM bupropion HCl 150 mg tablet extended release 24 hr 150 mg PO DAILY turmeric root extract 500 mg capsule 500 mg PO DAILY liothyronine 25 mcg tablet 50 mcg PO DAILY baclofen 5 mg tablet 5 mg PO TID Qty: 20 0RF Rx Instructions: May take 1 tab every 8 hours as needed for pain/muscle spasm duloxetine 30 mg capsule, delayed rel sprinkle 30 mg PO DAILY indomethacin 50 mg capsule 50 mg PO TID Rx Instructions: administer with food or milk topiramate [Topamax] 100 mg tablet 100 mg PO QHS Qty: 90 3RF prochlorperazine maleate 5 mg tablet 5 mg PO TID PRN (Reason: nausea and vomiting) Qty: 30 1RF levomefolate calcium 15 mg tablet 15 mg PO DAILY omeprazole 40 mg capsule,delayed release(DR/EC) 40 mg PO BID 90 Days Qty: 180 2RF Emgality Pen 120 mg/mL pen injector 120 mg subcut QMONTH Qty: 1 11RF oxybutynin chloride 5 mg tablet extended release 24hr 5 mg PO DAILY Qty: 90 3RF fluticasone propionate 50 mcg/actuation spray,suspension 2 spray INTRANASAL DAILY Label Comments: USE TWO SPRAYS NASALLY EVERY DAY NEEDED aripiprazole 15 mg tablet 0.5 tab PO HS cholecalciferol (vitamin D3) [Vitamin D3] 50 mcg (2,000 unit) Tablet 50 mcg PO DAILY methocarbamol 750 mg tablet 750 mg PO QID PRN prednisone 10 mg tablet See Rx Instructions .ROUTE .COMPLEX Qty: 63 0RF Rx Instructions: Take 6 tabs daily for 3 days, then 5 tabs daily for 3 days, then 4 tabs daily for 3 days, then 3 tabs daily for 3 days, then 2 tabs daily for 3 days, then 1 tab daily for 3 days. methocarbamol 500 mg tablet 500 mg PO Q6H PRN (Reason: muscle spasm) Qty: 14 0RF Discharge Instructions Additional Instructions: Continue to keep your follow-up with physical therapy and it is recommended to follow-up with your primary care provider in the next week. If you develop any signs of emergent back pain as discussed please return to the emergency department for reassessment. Continue to take medication as prescribed by previous providers and perform daily activities as tolerated by pain but avoid any heavy lifting, bending, or twisting activities. Referrals: Primary Care Provider [Outside] Discharge Data Discharge Date/Time-TO BE ENTERED AT DEPARTURE: 11/06/21 18:43 Medical Decision Making Patient here for back pain with complaint of numbness to right buttock and radiating pain and discomfort down right leg. Patient denies any severe change in symptoms, denies dysfunction of lower extremity, bowel or bladder changes, saddle anesthesia. Patient states that she is mainly concerned due to her numbness in her right buttock was also where they placed the Toradol injection yesterday when she was seen in the emergency department. Physical exam is none worrisome for emergent back pain and I feel patient is LOW risk for ABDOMINAL AORTIC ANEURYSM, CAUDA EQUINA SYNDROME, EPIDURAL MASS LESION, OR HERNIATED DISK CAUSING SEVERE STENOSIS, thus I consider the discharge disposition reasonable. We have discussed the diagnosis and risks, and we agree with discharging home to follow-up with their primary doctor. We also discussed returning to the Emergency Department immediately if new or worsening symptoms occur. We have discussed the symptoms which are most concerning (e.g., saddle anesthesia, urinary or bowel incontinence or retention, changing or worsening pain) that necessitate immediate return. After discussion of diagnosis and plan of care patient has no further needs, questions, or concerns and states clear understanding to return to the emergency department for any worsening symptoms. This documentation was generated using [employer] system, please disregard any oddities of phrase or misspellings. HPI General Mode of arrival: ambulatory. Date/Time Provider Initiated Documentation: 11/06/21 18:05. Limitations to Documentation: no limitations. Information obtained by: RN notes reviewed and old records reviewed. History of Present Illness 55 year old F presents to the emergency department with the chief complaint of back pain , described as moderate and similar to prior episodes, with intensity rated at 6. Quality is described as aching, and is localized to the back. Patient extremity. Patient started experiencing this week(s) (4) and it has been constant. No relieving factors improve symptom(s), Movement worsens symptoms . Patient notes no other symptoms.. Patient did receive the following treatments prior to arrival, NSAID Related Data Home Medications Medication Instructions Recorded Confirmed atorvastatin 40 mg tablet 40 mg PO DAILY 02/28/18 11/05/21 bupropion HCl 300 mg 24 hr tablet, 300 mg PO QAM 02/28/18 11/05/21 extended release (Wellbutrin XL) dextroamphetamine-amphetamine ER 30 mg PO QAM 02/28/18 11/05/21 30 mg 24hr capsule,extend release (Adderall XR) duloxetine 60 mg capsule,delayed 60 mg PO DAILY 02/28/18 11/05/21 release (Cymbalta) fexofenadine 180 mg tablet 180 mg PO DAILY 02/28/18 11/05/21 bupropion HCl 150 mg 24 hr tablet, 150 mg PO DAILY 09/04/19 11/05/21 extended release duloxetine 30 mg capsule,delayed 30 mg PO DAILY 11/11/19 11/05/21 release sprinkle turmeric root extract 500 mg 500 mg PO DAILY 04/29/20 11/05/21 capsule liothyronine 25 mcg tablet 50 mcg PO DAILY 07/22/20 11/05/21 prochlorperazine maleate 5 mg 5 mg PO TID PRN nausea and 04/15/21 11/05/21 tablet vomiting #30 tabs topiramate 100 mg tablet (Topamax) 100 mg PO QHS #90 tabs 04/15/21 11/05/21 levomefolate calcium 15 mg tablet 15 mg PO DAILY 05/13/21 11/05/21 omeprazole 40 mg capsule,delayed 40 mg PO BID 90 days #180 caps 08/03/21 11/05/21 release galcanezumab-gnlm 120 mg/mL 120 mg subcut QMONTH #1 mL 08/26/21 11/05/21 subcutaneous pen injector (Emgality Pen) oxybutynin chloride 5 mg 5 mg PO DAILY #90 tabs 09/21/21 11/05/21 tablet,extended release 24 hr baclofen 5 mg tablet 5 mg PO TID #20 tabs 10/29/21 11/05/21 indomethacin 50 mg capsule 50 mg PO TID 11/03/21 11/05/21 aripiprazole 15 mg tablet 0.5 tab PO HS 11/05/21 11/05/21 cholecalciferol (vitamin D3) 50 50 mcg PO DAILY 11/05/21 11/05/21 mcg (2,000 unit) tablet (Vitamin D3) fluticasone propionate 50 2 spray intranasal DAILY 11/05/21 11/05/21 mcg/actuation nasal spray,suspension methocarbamol 500 mg tablet 500 mg PO Q6H PRN muscle spasm #14 11/05/21 tabs methocarbamol 750 mg tablet 750 mg PO QID PRN 11/05/21 11/05/21 prednisone 10 mg tablet See Rx Instructions .Route 11/05/21 .COMPLEX #63 tabs Previous Rx's Medication Instructions Recorded prochlorperazine maleate 5 mg 5 mg PO TID PRN nausea and 04/15/21 tablet vomiting #30 tabs topiramate 100 mg tablet (Topamax) 100 mg PO QHS #90 tabs 04/15/21 omeprazole 40 mg capsule,delayed 40 mg PO BID 90 days #180 caps 08/03/21 release galcanezumab-gnlm 120 mg/mL 120 mg subcut QMONTH #1 mL 08/26/21 subcutaneous pen injector (Emgality Pen) oxybutynin chloride 5 mg 5 mg PO DAILY #90 tabs 09/21/21 tablet,extended release 24 hr baclofen 5 mg tablet 5 mg PO TID #20 tabs 10/29/21 methocarbamol 500 mg tablet 500 mg PO Q6H PRN muscle spasm #14 11/05/21 tabs prednisone 10 mg tablet See Rx Instructions .Route 11/05/21 .COMPLEX #63 tabs Allergies Allergy/AdvReac Type Severity Reaction Status Date / Time etodolac Allergy Severe Hives Verified 11/05/21 16:41 house dust Allergy Unknown Verified 11/05/21 16:41 mold Allergy Unknown Verified 11/05/21 16:41 pollen extracts Allergy Unknown Verified 11/05/21 16:41 General Stated Complaint: Orthopedic VALENTIN: 4 Review of Systems Constitutional Constitutional: Denies chills and Denies fever(s) Cardiovascular Cardiovascular: Denies chest pain and Denies dyspnea on exertion Respiratory Respiratory: Denies cough and Denies dyspnea on exertion Gastrointestinal Gastrointestinal: Denies abdominal pain, Denies change in bowel habits, Denies diarrhea, Denies nausea and Denies vomiting Genitourinary Genitourinary: Denies urinary incontinence Musculoskeletal Musculoskeletal: Reports as per HPI, Reports back pain, Reports numbness and Denies tingling Neurologic Neurologic: Denies localized weakness, Reports numbness and Denies tingling PFSH All Active Problems (Updated 11/06/21 @ 18:38 by Brandon George NP) Sciatica (Acute) Low back pain (Acute) Sciatic leg pain (Acute) Sciatica of right side (Acute) Helicobacter pylori gastrointestinal tract infection (Acute) Iron deficiency anemia (Acute) Mixed stress and urge urinary incontinence (Acute) Migraine headache without aura (Acute) Diverticulosis (Acute) Nephrolithiasis (Chronic ~04/2018) Migraine (Chronic) Obesity (Chronic) Smoker (Chronic) Hereditary hemochromatosis (Chronic) Mood disorder (Chronic) long history of depression MAGDALENO on CPAP (Chronic) Right ACL tear (Acute) Date of injury: 09/28/17 Medical History Allergic rhinitis Chronic recurrent major depressive disorder Depression Family history of epilepsy Fusion of spine, cervical region (~2012) History of retinal detachment (~1996) Repair 1996 Sciatica Right Tobacco use Surgical History History of detached retina repair Left eye [facility] [place] - 1996 S/P colonoscopy (~09/03/18) 1991- done for diarrhea. Diagnosed with IBS-D S/P reconstruction procedure (~2005) Nose Status post arthroscopy of right knee Right knee arthroscopy with ACL debridement DOS: 03/14/18 Dr. Man Status post arthroscopy of right shoulder Distal clavicle excision 2005 Status post cervical spinal fusion C4-5 fusion 2012 Status post nasal surgery Nose reconstruction 2005 Family History Mother Mitral valve prolapse History of supraventricular tachycardia History of atrial fibrillation Dementia Hereditary hemochromatosis Father Hypertension Hyperlipidemia Glaucoma Colorectal polyps Sister No problems noted. Social History Smoking/Tobacco Use Status: Current every day Tobacco Type: cigarettes Years smoked: 30 Smoking risk assessment performed?: Yes Alcohol Intake: current Alcohol Intake frequency: holidays/special occasions only Alcohol type: hard liquor Drug use: Daily Substance use type: marijuana Details: daily user, last 06/01/21. Do you feel safe at home: Yes Do you feel safe in your relationship?: Yes Additional Social history: Lives with Mother Exam Const General: cooperative and no acute distress Orientation: alert, awake and oriented x3 Neck Neck: normal visual inspection, full ROM and no meningeal signs Resp Effort & Inspection: normal respiratory effort Auscultation: clear to auscultation bilaterally Cardio Rate: regular rate Rhythm: regular rhythm Heart Sounds: S1 normal and S2 normal GI Palpation: no hepatosplenomegaly, no aortic enlargement, no masses and no pulsatile masses Back/Spine/Pelvis Thoracic/Lumbar Spine: pain with thoraco-lumbar ROM and thoraco-lumbar ROM limited Pelvis: no pain with anterior-posterior compression, no pain with lateral compression, buttock tenderness on the right and sciatic notch tenderness on the right Neuro General: patient alert, patient awake and patient oriented x3 DTR's: Rt Patellar: 1+, Lt Patellar: 1+, Rt Ankle: 2+ and Lt Ankle: 2+ Course Vital Signs Vital signs: Vital Signs Temperature 37 C 11/06/21 18:05 Pulse 90 11/06/21 18:05 Respiratory Rate 17 11/06/21 18:05 Blood Pressure 137/71 11/06/21 18:05 Pulse Oximetry 97 11/06/21 18:05 Temperature 37 C 11/06/21 18:05 Pulse 90 11/06/21 18:05 Respiratory Rate 17 11/06/21 18:05 Blood Pressure 137/71 11/06/21 18:05 Blood Pressure Position Sitting 11/06/21 18:05 Pulse Oximetry 97 11/06/21 18:05 Oxygen Delivery Method Room Air 11/06/21 18:05 Oxygen Flow Rate 0 11/06/21 18:05 Pain Level 6 11/06/21 18:05
--- NOTE | 2021-11-06 19:32 | NUR.NOTE ---
Referral to Care Management to establish local pcp in a week for sciatica, multiple urgent care visits.Nursing Note:
--- NOTE | 2021-11-08 13:23 | PDOC.ERCMACT ---
- If Service Date Differs Date of service: 11/08/21 Time of Service: 13:23 Care Management Activity Note Valerie is seen in the ED for sciatica. At the request of ED provider, CM coordinates a referral to Dr. Maty Baumann of [facility], on-call provider, to assist Valerie in obtaining a follow up appointment and in establishing care with a local PCP. Valerie has Medicaid for insurance.
== END 2021-11-06 18:43 | disposition home or self-care (01) ==
PROVIDERS: Emergency Provider Nurse Practitioner Family; PCP Family Medicine
DX: M54.31 Sciatica, right side (principal); F17.210 Nicotine dependence, cigarettes, uncomplicated
CPT/HCPCS: 99281; 99282

== ENCOUNTER 2021-11-09 03:35 | Outpatient (CLI) | payer MEDICAID, SELFPAY ==
[2021-11-09 14:46] LABS: Abs Immature Grans 0.06 10^3/uL (0.0-0.06); Absolute Basophil Count 0.01 10^3/uL (0.0-0.2); Absolute Eosinophil Count 0.01 10^3/uL (0.0-0.7); Absolute Lymphocyte Count 1.58 10^3/uL (1.2-3.4); Absolute Monocyte Count 0.17 10^3/uL (0.1-0.8); Basophils % 0.1; Eosinophils % 0.1; HCT 35.9 % (36.0-46.0); HGB 11.6 g/dL (11.2-15.7); Immature Grans % 0.5; Lymphocytes % 14.3; MCH 27.4 pg (27.0-33.0); MCHC 32.3 % (32.0-36.0); MCV 85 fL (80-95); MPV 10.3 fL (8.0-11.0); Monocytes % 1.5; Neutrophils % 83.5; Platelet Count 242 10^3/uL (130-400); RBC 4.24 10^6/uL (3.93-5.22); RDW 15.7 % (11.7-14.6); RDW-SD 48.3 fL; WBC 11.06 10^3/uL (4.4-10.8)
[2021-11-09 14:49] LABS: Absolute Neutrophil Count 9.24 10^3/uL (1.2-6.7)
[2021-11-09 15:13] LABS: Iron 35 ug/dL (50-170)
[2021-11-09 15:28] LABS: Ferritin 8 ng/mL (8-252)
== END 2021-11-09 03:36 | disposition home or self-care (01) ==
LOC: LBO 03:35
PROVIDERS: PCP Family Medicine; Visit Provider Family Medicine
DX: E83.110 Hereditary hemochromatosis (principal)
CPT/HCPCS: 36415; 82728; 83540; 85025

== ENCOUNTER → 2022-01-18 02:33 | Outpatient (CLI) | payer MEDICAID, SELFPAY ==
--- NOTE | 2022-01-18 13:45 | DI.MRI_ITS ---
Exam(s) MR LUMBAR SPINE WO EXAM: MR LUMBAR SPINE WO CLINICAL HISTORY: LT SIDE SCIATICA, M54.32, PERSISTENT LBP S/P 6 WEEKS PT WITH NO IMPROVEMENT. TECHNIQUE: Multiplanar multisequence MRI of the Lumbar spine was performed. COMPARISON: No exams were available for comparison FINDINGS: Bones: The last intervertebral disc space is designated the L5/S1 level for the numbering purpose of this examination. The vertebral body heights are well maintained. There is a mild left convex curva ture of the spine. Degenerative endplate signal changes are present. Cord: The conus tip ends at the T12 level. It is of normal size and signal intensity. T12-L1: No disc herniations or bulges are present. No central spinal canal or neural foraminal stenos is. L1-2: No disc herniations or bulges are present. No central spinal canal or neural foraminal stenosis . L2-3: There is a mild diffuse disc bulge. No central spinal canal or neural foraminal stenosis. L3-4: There is a diffuse disc bulge. There are hypertrophic changes of the facets. No significant graham tral spinal canal stenosis is seen. There is marked right neural foraminal stenosis mild left neural foraminal stenosis is present. L4-5: There is a diffuse disc bulge. There are hypertrophic changes of the facets and ligamentum flav um. These all contribute to cause moderate central spinal canal stenosis. There is moderately severe right and [id number] left neural foraminal stenosis. L5-S1: No disc herniations or bulges are present. No central spinal canal or neural foraminal stenosi s.There are degenerative changes of the facets. Soft tissues: The visualized SI joints and sacrum are well maintained. The paraspinal soft tissues ar e unremarkable. IMPRESSION: Multilevel degenerative changes are seen in the lumbar spine resulting in central spinal canal and ne ural foraminal stenosis. The findings are most marked at the L2-3 through L4-5 disc levels. DATA REPOSITORY:
== END ==
PROVIDERS: PCP Family Medicine; Visit Provider Family Medicine
DX: M47.816 Spondylosis without myelopathy or radiculopathy, lumbar region (principal)
CPT/HCPCS: 72148

== ENCOUNTER 2022-01-21 01:25 | Outpatient (CLI) | payer MEDICAID, SELFPAY ==
[2022-01-21 12:20] LABS: Abs Immature Grans 0.02 10^3/uL (0.0-0.06); Absolute Basophil Count 0.04 10^3/uL (0.0-0.2); Absolute Eosinophil Count 0.64 10^3/uL (0.0-0.7); Absolute Lymphocyte Count 3.63 10^3/uL (1.2-3.4); Absolute Monocyte Count 0.64 10^3/uL (0.1-0.8); Absolute Neutrophil Count 2.82 10^3/uL (1.2-6.7); Basophils % 0.5; Eosinophils % 8.2; HCT 41.8 % (36.0-46.0); HGB 13.4 g/dL (11.2-15.7); Immature Grans % 0.3; Lymphocytes % 46.6; MCH 28.4 pg (27.0-33.0); MCHC 32.1 % (32.0-36.0); MCV 89 fL (80-95); MPV 10.1 fL (8.0-11.0); Monocytes % 8.2; Neutrophils % 36.2; Platelet Count 244 10^3/uL (130-400); RBC 4.72 10^6/uL (3.93-5.22); RDW 14.8 % (11.7-14.6); RDW-SD 47.8 fL; WBC 7.79 10^3/uL (4.4-10.8)
[2022-01-21 13:06] LABS: Ferritin 28 ng/mL (8-252)
[2022-01-21 14:08] LABS: Iron 30 ug/dL (50-170)
== END 2022-01-21 01:26 | disposition home or self-care (01) ==
PROVIDERS: PCP Family Medicine; Visit Provider Family Medicine
DX: D50.9 Iron deficiency anemia, unspecified (principal)
CPT/HCPCS: 36415; 82728; 83540; 85025

== ENCOUNTER → 2022-02-02 01:28 | Outpatient (CLI) | payer MEDICAID, SELFPAY ==
--- NOTE | 2022-02-02 | DI.MAMMO_ITS ---
Exam(s) MAMMO SCREENING EXAM: MAMMO SCREENING CLINICAL HISTORY: SCREENING FOR BREAST CANCER Z12.39 TECHNIQUE: Bilateral full field digital CC and MLO mammographic images were obtained with 3D tomosyn thesis and utilizing computer aided detection (CAD). COMPARISON: Available for comparison. FINDINGS: Masses/Architectural Distortion: There does appear to be slight increase in size of a nodular density in the posterior central left breast. Microcalcifications: No suspicious pleomorphic-type are seen. Skin Thickening/Nipple Retraction: None. IMPRESSION: 1. Increase in size of a nodular density in the posterior central left breast. 2. This area should be further evaluated with spot compression view. Ultrasound may be indicated at that time. BI-RADS Category 0 - Assessment Incomplete: Need additional imaging evaluation Breast Density - Category B - Scattered areas of fibroglandular density Breast density category C or D implies that the patient has dense breast tissue. Dense breast tissue is very common and is not abnormal but dense breast tissue can make it harder to find cancer on a ma mmogram. Also, dense breast tissue may increase their breast cancer risk. This information about the result of the mammogram report was provided to the patient to raise their awareness. Use this report when you speak with the patient about their risks for breast cancer, which includes their family hist ory. At that time, you may recommend for more screening tests (Ultrasound or MRI) as they might be us eful based on their risk. A negative radiographic report should not delay biopsy if a dominant or clinically suspicious mass is present. Up to ten percent of cancers are not identified on mammography. A negative report may reinforce clinical impression. Adenosis and dense breasts may obscure an underlying neoplasm. False positive reports average 6 to 10%. Patient will receive a letter notifying them of these results.
== END ==
PROVIDERS: PCP Family Medicine; Visit Provider Family Medicine
DX: Z12.31 Encounter for screening mammogram for malignant neoplasm of breast (principal); R92.8 Other abnormal and inconclusive findings on diagnostic imaging of breast
CPT/HCPCS: 77063; 77067

== ENCOUNTER → 2022-02-08 02:22 | Outpatient (CLI) | payer MEDICAID, SELFPAY ==
--- NOTE | 2022-02-08 | DI.MAMMO_ITS ---
Exam(s) MAMMO SCREEN CALL BACK UNI EXAM: MAMMO SCREEN CALL BACK UNI CLINICAL HISTORY: F/U ABNL MAMMO, R92.8,INCREASE IN SIZE OF NODULAR DENSITY. TECHNIQUE: Craniocaudal and mediolateral oblique Full Field Digital Mammography views of the left br east with Computer Aided Diagnosis. COMPARISON: Comparison is made with prior examinations. FINDINGS: Mammography/Tomosynthesis: Masses/Architectural Distortion: No intraparenchymal masses are identified. The area of concern repr esents a skin mole. Microcalcifictions: No suspicious pleomorphic-type are seen. Skin Thickening/Nipple Retraction: None. IMPRESSION: 1. No evidence of malignancy is noted. 2. Unless there is more urgent need, follow-up screening mammography is recommended, as per [place] guidelines. 3. The findings were discussed with the patient on the date of the examination. BI-RADS Category 1 - Negative Breast Density - Category B - Scattered areas of fibroglandular density Breast density Category C or D implies that the patient has dense breast tissue. Dense breast tissue can make it harder to find cancer on a mammogram. Dense breast tissue is also associated with an incr eased risk of breast cancer. This information about the result of the mammogram report was provided to the patient to raise their awareness. Use this report when you speak with the patient about their risks for breast cancer, which includes their family history. At that time, you may recommend additional screening tests (Ultrasoun d or MRI) as these tests may add significant information. A negative radiographic report should not delay biopsy if a dominant or clinically suspicious mass is present. Up to ten percent of cancers are not identified on mammography. A negative report may reinforce clinical impression. Adenosis and dense breasts may obscure an underlying neoplasm. False positive reports average 6 to 10%. Patient will receive a letter notifying them of these results.
== END ==
PROVIDERS: PCP Family Medicine; Visit Provider Family Medicine
DX: Z12.31 Encounter for screening mammogram for malignant neoplasm of breast (principal)
CPT/HCPCS: 77063; 77067

== ENCOUNTER 2022-04-10 17:01 | Emergency (ER) | payer MEDICAID, SELFPAY ==
[2022-04-10 17:07] VITALS: BP 135/80; PULSE 73; RESP 20; TEMP 36.9; O2SAT 100
--- NOTE | 2022-04-10 17:22 | ED.GENADUL_ITS ---
Discharge Plan Disposition Patient Disposition: Home Condition: Improving Discharge Details Clinical Impression: Cellulitis of left leg Primary Care Provider: Angela Leon ED Provider: Rl Muonz Home Meds and New Rx's Prescriptions: New cephalexin 500 mg capsule 500 mg PO TID 7 Days Qty: 21 0RF Continued dextroamphetamine-amphetamine [Adderall XR] 30 mg capsule,extended release 24hr 30 mg PO QAM atorvastatin 40 mg tablet 40 mg PO DAILY fexofenadine 180 mg tablet 180 mg PO DAILY bupropion HCl [Wellbutrin XL] 300 mg tablet extended release 24 hr 300 mg PO QAM duloxetine [Cymbalta] 60 mg capsule,delayed release(DR/EC) 60 mg PO BID bupropion HCl 150 mg tablet extended release 24 hr 150 mg PO DAILY turmeric root extract 500 mg capsule 500 mg PO DAILY liothyronine 25 mcg tablet 50 mcg PO DAILY indomethacin 50 mg capsule 50 mg PO TID Rx Instructions: administer with food or milk topiramate [Topamax] 100 mg tablet 100 mg PO QHS Qty: 90 3RF prochlorperazine maleate 5 mg tablet 5 mg PO TID PRN (Reason: nausea and vomiting) Qty: 30 1RF levomefolate calcium 15 mg tablet 15 mg PO DAILY Emgality Pen 120 mg/mL pen injector 120 mg subcut QMONTH Qty: 1 11RF oxybutynin chloride 5 mg tablet extended release 24hr 5 mg PO DAILY Qty: 90 3RF eletriptan [Relpax] 40 mg tablet See Rx Instructions PO .COMPLEX Qty: 10 3RF Rx Instructions: take 1 tab at onset of headache; if no relief, may repeat 1 tab after at least 2 hrs; max = 2 tabs/24 hrs PO fluticasone propionate 50 mcg/actuation spray,suspension 2 spray INTRANASAL DAILY Label Comments: USE TWO SPRAYS NASALLY EVERY DAY NEEDED cholecalciferol (vitamin D3) [Vitamin D3] 50 mcg (2,000 unit) Tablet 50 mcg PO DAILY methocarbamol 750 mg tablet 750 mg PO QID PRN aripiprazole 15 mg tablet 10 mg PO HS Discharge Instructions Instructions: Cellulitis (ED) Additional Instructions: Please take cephalexin/Keflex every 6 hours for the first 4 doses then 3 times daily. We will have you return tomorrow morning for an outpatient ultrasound of the leg to rule out deep vein thrombosis. See the enclosed paperwork and please call the attached number for an appointment time. Home to rest. Elevate leg above level heart to reduce swelling. Return to the emergency department for any acute concerns. Medical Decision Making 56-year-old female presents from home complaining of left lower extremity mild swelling since she fell 2 weeks ago. She noticed a few days of erythema and warmth to the area that led her to present to the ER. She is not systemically ill in any way. This is most consistent with cellulitis. I will obtain outpatient ultrasound to rule out DVT for tomorrow. Patient understands the plan of care. HPI General Mode of arrival: ambulatory . Date/Time Provider Initiated Documentation: 04/10/22 17:07 . Limitations to Documentation: no limitations . Information obtained by: patient . History of Present Illness 56 year old F presents to the emergency department with the chief complaint of Left leg mild swelling and erythema, described as mild, Quality is described as constant, and is localized to the left and lower extremity. Patient reports no radiation. Patient started experiencing this day(s) and it has been constant. No relieving factors improve symptom(s), No exacerbating factors reported . Patient notes denies fever/chills and rash. Patient did receive the following treatments prior to arrival, none Related Data Home Medications Medication Instructions Recorded Confirmed atorvastatin 40 mg tablet 40 mg PO DAILY 02/28/18 04/10/22 bupropion HCl 300 mg 24 hr tablet, 300 mg PO QAM 02/28/18 04/10/22 extended release (Wellbutrin XL) dextroamphetamine-amphetamine ER 30 mg PO QAM 02/28/18 04/10/22 30 mg 24hr capsule,extend release (Adderall XR) fexofenadine 180 mg tablet 180 mg PO DAILY 02/28/18 04/10/22 bupropion HCl 150 mg 24 hr tablet, 150 mg PO DAILY 09/04/19 04/10/22 extended release turmeric root extract 500 mg 500 mg PO DAILY 04/29/20 04/10/22 capsule liothyronine 25 mcg tablet 50 mcg PO DAILY 07/22/20 04/10/22 prochlorperazine maleate 5 mg 5 mg PO TID PRN nausea and 04/15/21 04/10/22 tablet vomiting #30 tabs topiramate 100 mg tablet (Topamax) 100 mg PO QHS #90 tabs 04/15/21 04/10/22 levomefolate calcium 15 mg tablet 15 mg PO DAILY 05/13/21 04/10/22 galcanezumab-gnlm 120 mg/mL 120 mg subcut QMONTH #1 mL 08/26/21 04/10/22 subcutaneous pen injector (Emgality Pen) oxybutynin chloride 5 mg 5 mg PO DAILY #90 tabs 09/21/21 04/10/22 tablet,extended release 24 hr indomethacin 50 mg capsule 50 mg PO TID 11/03/21 04/10/22 cholecalciferol (vitamin D3) 50 50 mcg PO DAILY 11/05/21 04/10/22 mcg (2,000 unit) tablet (Vitamin D3) fluticasone propionate 50 2 spray intranasal DAILY 11/05/21 04/10/22 mcg/actuation nasal spray,suspension methocarbamol 750 mg tablet 750 mg PO QID PRN 11/05/21 04/10/22 aripiprazole 15 mg tablet 10 mg PO HS 01/18/22 04/10/22 duloxetine 60 mg capsule,delayed 60 mg PO BID 01/18/22 04/10/22 release (Cymbalta) eletriptan 40 mg tablet (Relpax) See Rx Instructions PO .COMPLEX 01/27/22 0 04/10/22 #10 tabs cephalexin 500 mg capsule 500 mg PO TID 7 days #21 caps 04/10/22 Previous Rx's Medication Instructions Recorded prochlorperazine maleate 5 mg 5 mg PO TID PRN nausea and 04/15/21 tablet vomiting #30 tabs topiramate 100 mg tablet (Topamax) 100 mg PO QHS #90 tabs 04/15/21 galcanezumab-gnlm 120 mg/mL 120 mg subcut QMONTH #1 mL 08/26/21 subcutaneous pen injector (Emgality Pen) oxybutynin chloride 5 mg 5 mg PO DAILY #90 tabs 09/21/21 tablet,extended release 24 hr eletriptan 40 mg tablet (Relpax) See Rx Instructions PO .COMPLEX 01/27/22 #10 tabs cephalexin 500 mg capsule 500 mg PO TID 7 days #21 caps 04/10/22 Allergies Allergy/AdvReac Type Severity Reaction Status Date / Time etodolac Allergy Severe Hives Verified 04/10/22 17:09 house dust Allergy Unknown Verified 04/10/22 17:09 mold Allergy Unknown Verified 04/10/22 17:09 pollen extracts Allergy Unknown Verified 04/10/22 17:09 General Stated Complaint: Cellulitis VALENTIN: 3 Review of Systems Narrative: No chest pain or shortness of breath. No fever. 6 systems reviewed and otherwise negative PFSH All Active Problems (Updated 04/10/22 @ 17:26 by Rl Munoz MD) Right ACL tear (Acute) Date of injury: 09/28/17 MAGDALENO on CPAP (Chronic) Mood disorder (Chronic) long history of depression Hereditary hemochromatosis (Chronic) Smoker (Chronic) Obesity (Chronic) Migraine (Chronic) Nephrolithiasis (Chronic ~04/2018) Diverticulosis (Acute) Migraine headache without aura (Acute) Mixed stress and urge urinary incontinence (Acute) Iron deficiency anemia (Acute) Helicobacter pylori gastrointestinal tract infection (Acute) Sciatica of right side (Acute) Sciatic leg pain (Acute) Low back pain (Acute) Cellulitis of left leg (Acute) Medical History Allergic rhinitis Chronic recurrent major depressive disorder Depression Family history of epilepsy Fusion of spine, cervical region (~2012) History of retinal detachment (~1996) Repair 1996 Sciatica Right Tobacco use Surgical History History of detached retina repair Left eye [facility] [place] S/P colonoscopy (~09/03/18) 1991- done for diarrhea. Diagnosed with IBS-D S/P reconstruction procedure (~2005) Nose Status post arthroscopy of right knee Right knee arthroscopy with ACL debridement DOS: 03/14/18 Dr. Man Status post arthroscopy of right shoulder Distal clavicle excision 2005 Status post cervical spinal fusion C4-5 fusion 2012 Status post nasal surgery Nose reconstruction 2005 Family History Mother Mitral valve prolapse History of supraventricular tachycardia History of atrial fibrillation Dementia Hereditary hemochromatosis Father Hypertension Hyperlipidemia Glaucoma Colorectal polyps Sister No problems noted. Social History Smoking/Tobacco Use Status: Current every day Tobacco Type: cigarettes Years smoked: 30 Smoking risk assessment performed?: Yes Alcohol Intake: current Alcohol Intake frequency: holidays/special occasions only Alcohol type: hard liquor Drug use: Daily Substance use type: marijuana Details: daily user, last 06/01/21. Do you feel safe at home: Yes Do you feel safe in your relationship?: Yes Additional Social history: Lives with Mother Exam Narrative Exam Narrative: GEN: awake, alert, oriented 3. Pleasant, well groomed, interactive. HEAD: Normocephalic, atraumatic ENT: Mucous membranes moist, oropharynx unremarkable, External ear exam unremarkable EYES: PERRL, EOMI NECK: Full ROM, no JENNIFER, no menigismus CHEST/RESP: No respiratory distress EXT: Full ROM, the left leg has trace edema present the skin is warm and erythematous and it blanches to the touch. No cords appreciated. Right lower extremity unremarkable. Neuro: Grossly normal neurologic exam, conversant, interactive. Psych: Speech fluent, thoughts congruent, affect normal Course Vital Signs Vital signs: Vital Signs Temperature 36.9 C 04/10/22 17:07 Pulse 73 04/10/22 17:07 Respiratory Rate 20 04/10/22 17:07 Blood Pressure 135/80 04/10/22 17:07 Pulse Oximetry 100 04/10/22 17:07 Temperature 36.9 C 04/10/22 17:07 Pulse 73 04/10/22 17:07 Respiratory Rate 20 04/10/22 17:07 Respiratory Effort 04/10/22 17:11 Blood Pressure 135/80 04/10/22 17:07 Blood Pressure Position Sitting 04/10/22 17:07 Pulse Oximetry 100 04/10/22 17:07 Oxygen Delivery Method Room Air 04/10/22 17:07 Oxygen Flow Rate 0 04/10/22 17:07 Pain Level 3 04/10/22 17:07
== END 2022-04-10 17:34 | disposition home or self-care (01) ==
PROVIDERS: Emergency Provider Emergency Medicine; PCP Family Medicine
DX: L03.116 Cellulitis of left lower limb (principal)
CPT/HCPCS: 99283; 99284

== ENCOUNTER 2022-04-11 07:56 | Outpatient (CLI) | payer MEDICAID, SELFPAY ==
--- NOTE | 2022-04-11 | DI.US_ITS ---
Exam(s) US LOWER EXTREMITY VENOUS LT EXAM: US LOWER EXTREMITY VENOUS LT CLINICAL HISTORY: SWELLING, ? DVT TECHNIQUE: Left lower extremity venous ultrasound performed using grayscale, color-flow, and spectra l Doppler analysis. COMPARISON: No exams were available for comparison FINDINGS: The left common femoral, femoral and popliteal veins demonstrate normal compressibility, augmentation , and color Doppler. The posterior tibial veins are patent. The saphenofemoral junction is unremarka ble. There is no evidence of a Valles cyst. The soft tissues are unremarkable. IMPRESSION: 1. No evidence of a left lower extremity DVT. 2. Findings were discussed with Dr. Montoya at 2:50 p.m. on 04/11/2022. DATA REPOSITORY:
== END 2022-04-11 08:16 ==
LOC: DI 07:57
PROVIDERS: PCP Family Medicine; Visit Provider Emergency Medicine
DX: R22.42 Localized swelling, mass and lump, left lower limb (principal); M79.662 Pain in left lower leg
CPT/HCPCS: 93971

== ENCOUNTER 2022-04-11 14:33 | Emergency (ER) | payer MEDICAID, SELFPAY ==
[2022-04-11 14:36] VITALS: BP 117/67; PULSE 63; RESP 18; TEMP 37.2; O2SAT 96
--- NOTE | 2022-04-11 14:57 | ED.GENADUL_ITS ---
Discharge Plan Disposition Patient Disposition: Home Condition: Improving Discharge Details Clinical Impression: Cellulitis of left leg Primary Care Provider: Angela Leon ED Provider: Rl Munoz Home Meds and New Rx's Prescriptions: Continued dextroamphetamine-amphetamine [Adderall XR] 30 mg capsule,extended release 24hr 30 mg PO QAM atorvastatin 40 mg tablet 40 mg PO DAILY fexofenadine 180 mg tablet 180 mg PO DAILY bupropion HCl [Wellbutrin XL] 300 mg tablet extended release 24 hr 300 mg PO QAM duloxetine [Cymbalta] 60 mg capsule,delayed release(DR/EC) 60 mg PO BID bupropion HCl 150 mg tablet extended release 24 hr 150 mg PO DAILY turmeric root extract 500 mg capsule 500 mg PO DAILY liothyronine 25 mcg tablet 50 mcg PO DAILY indomethacin 50 mg capsule 50 mg PO TID Rx Instructions: administer with food or milk topiramate [Topamax] 100 mg tablet 100 mg PO QHS Qty: 90 3RF prochlorperazine maleate 5 mg tablet 5 mg PO TID PRN (Reason: nausea and vomiting) Qty: 30 1RF levomefolate calcium 15 mg tablet 15 mg PO DAILY Emgality Pen 120 mg/mL pen injector 120 mg subcut QMONTH Qty: 1 11RF oxybutynin chloride 5 mg tablet extended release 24hr 5 mg PO DAILY Qty: 90 3RF eletriptan [Relpax] 40 mg tablet See Rx Instructions PO .COMPLEX Qty: 10 3RF Rx Instructions: take 1 tab at onset of headache; if no relief, may repeat 1 tab after at le ast 2 hrs; max = 2 tabs/24 hrs PO fluticasone propionate 50 mcg/actuation spray,suspension 2 spray INTRANASAL DAILY Label Comments: USE TWO SPRAYS NASALLY EVERY DAY NEEDED cholecalciferol (vitamin D3) [Vitamin D3] 50 mcg (2,000 unit) Tablet 50 mcg PO DAILY methocarbamol 750 mg tablet 750 mg PO QID PRN aripiprazole 15 mg tablet 10 mg PO HS cephalexin 500 mg capsule 500 mg PO TID 7 Days Qty: 21 0RF Discharge Instructions Instructions: Cellulitis (ED) Additional Instructions: Your ultrasound showed no evidence of blood clot. Continue to elevate the leg. Continue antibiotics. Return for any acute concern. Medical Decision Making 56-year-old female seen by me yesterday for left lower extremity cellulitis. Return today for outpatient follow-up ultrasound to rule out DVT. The study was negative. Patient states she is mildly improving. We will have her continue to elevate the leg. She will continue antibiotics. She will return for any acute concerns. HPI General Mode of arrival: ambulatory . Date/Time Provider Initiated Documentation: 04/11/22 14:51 . Limitations to Documentation: no limitations . Information obtained by: patient . History of Present Illness 56 year old F presents to the emergency department with the chief complaint of Recheck following ultrasound, Quality is described as constant, and is localized to the left and lower extremity. Patient started experiencing this day(s) and it has been constant. No relieving factors improve symptom(s), Patient notes no other symptoms.. Patient did receive the following treatments prior to arrival, other (On antibiotics) Related Data Home Medications Medication Instructions Recorded Confirmed atorvastatin 40 mg tablet 40 mg PO DAILY 02/28/18 04/11/22 bupropion HCl 300 mg 24 hr tablet, 300 mg PO QAM 02/28/18 04/11/22 extended release (Wellbutrin XL) dextroamphetamine-amphetamine ER 30 mg PO QAM 02/28/18 04/11/22 30 mg 24hr capsule,extend release (Adderall XR) fexofenadine 180 mg tablet 180 mg PO DAILY 02/28/18 04/11/22 bupropion HCl 150 mg 24 hr tablet, 150 mg PO DAILY 09/04/19 04/11/22 extended release turmeric root extract 500 mg 500 mg PO DAILY 04/29/20 04/11/22 capsule liothyronine 25 mcg tablet 50 mcg PO DAILY 07/22/20 04/11/22 prochlorperazine maleate 5 mg 5 mg PO TID PRN nausea and 04/15/21 04/11/22 tablet vomiting #30 tabs topiramate 100 mg tablet (Topamax) 100 mg PO QHS #90 tabs 04/15/21 04/11/22 levomefolate calcium 15 mg tablet 15 mg PO DAILY 05/13/21 04/11/22 galcanezumab-gnlm 120 mg/mL 120 mg subcut QMONTH #1 mL 08/26/21 04/11/22 subcutaneous pen injector (Emgality Pen) oxybutynin chloride 5 mg 5 mg PO DAILY #90 tabs 09/21/21 04/11/22 tablet,extended release 24 hr indomethacin 50 mg capsule 50 mg PO TID 11/03/21 04/11/22 cholecalciferol (vitamin D3) 50 50 mcg PO DAILY 11/05/21 04/11/22 mcg (2,000 unit) tablet (Vitamin D3) fluticasone propionate 50 2 spray intranasal DAILY 11/05/21 04/11/22 mcg/actuation nasal spray,suspension methocarbamol 750 mg tablet 750 mg PO QID PRN 11/05/21 04/11/22 aripiprazole 15 mg tablet 10 mg PO HS 01/18/22 04/11/22 duloxetine 60 mg capsule,delayed 60 mg PO BID 01/18/22 04/11/22 release (Cymbalta) eletriptan 40 mg tablet (Relpax) See Rx Instructions PO .COMPLEX 01/27/22 04/11/22 #10 tabs cephalexin 500 mg capsule 500 mg PO TID 7 days #21 caps 04/10/22 04/11/22 Previous Rx's Medication Instructions Recorded prochlorperazine maleate 5 mg 5 mg PO TID PRN nausea and 04/15/21 tablet vomiting #30 tabs topiramate 100 mg tablet (Topamax) 100 mg PO QHS #90 tabs 04/15/21 galcanezumab-gnlm 120 mg/mL 120 mg subcut QMONTH #1 mL 08/26/21 subcutaneous pen injector (Emgality Pen) oxybutynin chloride 5 mg 5 mg PO DAILY #90 tabs 09/21/21 tablet,extended release 24 hr eletriptan 40 mg tablet (Relpax) See Rx Instructions PO .COMPLEX 01/27/22 #10 tabs cephalexin 500 mg capsule 500 mg PO TID 7 days #21 caps 04/10/22 Allergies Allergy/AdvReac Type Severity Reaction Status Date / Time etodolac Allergy Severe Hives Verified 04/11/22 14:38 house dust Allergy Unknown Verified 04/11/22 14:38 mold Allergy Unknown Verified 04/11/22 14:38 pollen extracts Allergy Unknown Verified 04/11/22 14:38 General Stated Complaint: Recheck VALENTIN: 4 Review of Systems Narrative: No fever or chills, mildly improved. Ambulatory. PFSH All Active Problems (Updated 04/11/22 @ 14:59 by Rl Munoz MD) Right ACL tear (Acute) Date of injury: 09/28/17 MAGDALENO on CPAP (Chronic) Mood disorder (Chronic) long history of depression Hereditary hemochromatosis (Chronic) Smoker (Chronic) Obesity (Chronic) Migraine (Chronic) Nephrolithiasis (Chronic ~04/2018) Diverticulosis (Acute) Migraine headache without aura (Acute) Mixed stress and urge urinary incontinence (Acute) Iron deficiency anemia (Acute) Helicobacter pylori gastrointestinal tract infection (Acute) Sciatica of right side (Acute) Sciatic leg pain (Acute) Low back pain (Acute) Cellulitis of left leg (Acute) Cellulitis of left leg (Acute) Medical History Allergic rhinitis Chronic recurrent major depressive disorder Depression Family history of epilepsy Fusion of spine, cervical region (~2012) History of retinal detachment (~1996) Repair 1996 Sciatica Right Tobacco use Surgical History History of detached retina repair Left eye [facility] – [place] S/P colonoscopy (~09/03/18) 1991- done for diarrhea. Diagnosed with IBS-D S/P reconstruction procedure (~2005) Nose Status post arthroscopy of right knee Right knee arthroscopy with ACL debridement DOS: 03/14/18 Dr. Man Status post arthroscopy of right shoulder Distal clavicle excision 2005 Status post cervical spinal fusion C4-5 fusion 2012 Status post nasal surgery Nose reconstruction 2005 Family History Mother Mitral valve prolapse History of supraventricular tachycardia History of atrial fibrillation Dementia Hereditary hemochromatosis Father Hypertension Hyperlipidemia Glaucoma Colorectal polyps Sister No problems noted. Social History Smoking/Tobacco Use Status: Current every day Tobacco Type: cigarettes Years smoked: 30 Smoking risk assessment performed?: Yes Alcohol Intake: current Alcohol Intake frequency: holidays/special occasions only Alcohol type: hard liquor Drug use: Daily Substance use type: marijuana Details: daily user, last 06/01/21. Do you feel safe at home: Yes Do you feel safe in your relationship?: Yes Additional Social history: Lives with Mother Exam Narrative Exam Narrative: GEN: awake, alert, oriented 3. Pleasant, well groomed, interactive. HEAD: Normocephalic, atraumatic EYES: PERRL, EOMI NECK: Full ROM, no JENNIFER, no menigismus CHEST/RESP: No respiratory distress EXT: Full ROM, ambulatory Neuro: Grossly normal neurologic exam, conversant, interactive. Psych: Speech fluent, thoughts congruent, affect normal Course Vital Signs Vital signs: Vital Signs Temperature 37.2 C 04/11/22 14:36 Pulse 63 04/11/22 14:36 Respiratory Rate 18 04/11/22 14:36 Blood Pressure 117/67 04/11/22 14:36 Pulse Oximetry 96 04/11/22 14:36 Temperature 37.2 C 04/11/22 14:36 Pulse 63 04/11/22 14:36 Respiratory Rate 18 04/11/22 14:36 Blood Pressure 117/67 04/11/22 14:36 Pulse Oximetry 96 04/11/22 14:36 Oxygen Delivery Method Room Air 04/11/22 14:36 Oxygen Flow Rate 0 04/11/22 14:36
== END 2022-04-11 15:01 | disposition home or self-care (01) ==
PROVIDERS: Emergency Provider Emergency Medicine; PCP Family Medicine
DX: L03.116 Cellulitis of left lower limb (principal)

== ENCOUNTER 2022-04-12 16:29 | Emergency (ER) | payer MEDICAID, SELFPAY ==
[2022-04-12 16:36] VITALS: BP 134/70; PULSE 74; RESP 16; TEMP 36.8; O2SAT 99
--- NOTE | 2022-04-12 16:56 | W.ED.GENAD ---
Discharge Plan Disposition Patient Disposition: Home Condition: Stable Discharge Details Clinical Impression: Left leg swelling Primary Care Provider: Angela Leon ED Provider: Andreas Valero [place] Meds and New Rx's Prescriptions: New prednisone 20 mg tablet 60 mg PO DAILY 4 Days Qty: 12 0RF Continued dextroamphetamine-amphetamine [Adderall XR] 30 mg capsule,extended release 24hr 30 mg PO QAM atorvastatin 40 mg tablet 40 mg PO DAILY fexofenadine 180 mg tablet 180 mg PO DAILY bupropion HCl [Wellbutrin XL] 300 mg tablet extended release 24 hr 300 mg PO QAM duloxetine [Cymbalta] 60 mg capsule,delayed release(DR/EC) 60 mg PO BID bupropion HCl 150 mg tablet extended release 24 hr 150 mg PO DAILY turmeric root extract 500 mg capsule 500 mg PO DAILY liothyronine 25 mcg tablet 50 mcg PO DAILY indomethacin 50 mg capsule 50 mg PO TID Rx Instructions: administer with food or milk topiramate [Topamax] 100 mg tablet 100 mg PO QHS Qty: 90 3RF prochlorperazine maleate 5 mg tablet 5 mg PO TID PRN (Reason: nausea and vomiting) Qty: 30 1RF levomefolate calcium 15 mg tablet 15 mg PO DAILY Emgality Pen 120 mg/mL pen injector 120 mg subcut QMONTH Qty: 1 11RF oxybutynin chloride 5 mg tablet extended release 24hr 5 mg PO DAILY Qty: 90 3RF eletriptan [Relpax] 40 mg tablet See Rx Instructions PO .COMPLEX Qty: 10 3RF Rx Instructions: take 1 tab at onset of headache; if no relief, may repeat 1 tab after at least 2 hrs; max = 2 tabs/24 hrs PO fluticasone propionate 50 mcg/actuation spray,suspension 2 spray INTRANASAL DAILY Label Comments: USE TWO SPRAYS NASALLY EVERY DAY NEEDED cholecalciferol (vitamin D3) [Vitamin D3] 50 mcg (2,000 unit) Tablet 50 mcg PO DAILY methocarbamol 750 mg tablet 750 mg PO QID PRN aripiprazole 15 mg tablet 10 mg PO HS cephalexin 500 mg capsule 500 mg PO TID 7 Days Qty: 21 0RF ferrous sulfate [Iron (ferrous sulfate)] 325 mg (65 mg iron) Tablet 1 mg Discharge Instructions Additional Instructions: Continue to take the antibiotic as prescribed if not resolved by next week follow up with your primary care provider return to the emergency department if you feel more ill, have fevers, or severe worsening pain Medical Decision Making 56 yo female who has had left lower leg sweling for several days comes in with continued swelling. She was seen on 04/10 and started on cephalexin for possible cellulitis and on 04/11 had a negative dvt u/s. She denies any fevers or pain and feels well otherwise but felt the swelling of her left lower leg worsened today so came here for an evaluation. She arrives stable speaking clearly and appears well in no distress. The left leg compared to the right leg from the foot to the distal tibia is mildly swollen. She has no tenderness or pain anywhere. She has very faint erythema of the lateral distal tibia to the mid foot. Full rom, intact sensation and normal pulses. Exam not entirely consistent with cellulitis given very faint erythema. No significan joint swelling and no pain and full rom so doubt septic joint. Given well appearance with lack of systemic symptoms doubt sepsis at this time. I suspect she could have dermatitis and will start her on a short course of prednisone and advised to continue the cephalexin. Advised to f/u with pcp and return precautions given Differential Diagnosis Differential Diagnosis: dermatitis, gout, cellulitis Medical Records Medical records reviewed: Yes I reviewed the patient's medical records. HPI General Mode of arrival: ambulatory. Date/Time Provider Initiated Documentation: 04/12/22 16:29. Limitations to Documentation: no limitations. Information obtained by: patient. History of Present Illness 56 year old F presents to the emergency department with the chief complaint of left lower leg swelling, described as mild, Quality is described as burning and aching, and is localized to the left and lower extremity. Patient started experiencing this day(s) (4) and it has been constant. No relieving factors improve symptom(s), No exacerbating factors reported . Patient notes no other symptoms.; denies fever/chills. Patient did receive the following treatments prior to arrival, none Related Data Home Medications Medication Instructions Recorded Confirmed atorvastatin 40 mg tablet 40 mg PO DAILY 02/28/18 04/12/22 bupropion HCl 300 mg 24 hr tablet, 300 mg PO QAM 02/28/18 04/12/22 extended release (Wellbutrin XL) dextroamphetamine-amphetamine ER 30 mg PO QAM 02/28/18 04/12/22 30 mg 24hr capsule,extend release (Adderall XR) fexofenadine 180 mg tablet 180 mg PO DAILY 02/28/18 04/12/22 bupropion HCl 150 mg 24 hr tablet, 150 mg PO DAILY 09/04/19 04/12/22 extended release turmeric root extract 500 mg 500 mg PO DAILY 04/29/20 04/12/22 capsule liothyronine 25 mcg tablet 50 mcg PO DAILY 07/22/20 04/12/22 prochlorperazine maleate 5 mg 5 mg PO TID PRN nausea and 04/15/21 04/12/22 tablet vomiting #30 tabs topiramate 100 mg tablet (Topamax) 100 mg PO QHS #90 tabs 04/15/21 04/12/22 levomefolate calcium 15 mg tablet 15 mg PO DAILY 05/13/21 04/12/22 galcanezumab-gnlm 120 mg/mL 120 mg subcut QMONTH #1 mL 08/26/21 04/12/22 subcutaneous pen injector (Emgality Pen) oxybutynin chloride 5 mg 5 mg PO DAILY #90 tabs 09/21/21 04/12/22 tablet,extended release 24 hr indomethacin 50 mg capsule 50 mg PO TID 11/03/21 04/12/22 cholecalciferol (vitamin D3) 50 50 mcg PO DAILY 11/05/21 04/11/22 mcg (2,000 unit) tablet (Vitamin D3) fluticasone propionate 50 2 spray intranasal DAILY 11/05/21 04/12/22 mcg/actuation nasal spray,suspension methocarbamol 750 mg tablet 750 mg PO QID PRN 11/05/21 04/12/22 aripiprazole 15 mg tablet 10 mg PO HS 01/18/22 04/12/22 duloxetine 60 mg capsule,delayed 60 mg PO BID 01/18/22 04/12/22 release (Cymbalta) eletriptan 40 mg tablet (Relpax) See Rx Instructions PO .COMPLEX 01/27/22 04/12/22 #10 tabs cephalexin 500 mg capsule 500 mg PO TID 7 days #21 caps 04/10/22 04/11/22 ferrous sulfate 325 mg (65 mg 1 mg 04/12/22 iron) tablet (Iron (ferrous sulfate)) prednisone 20 mg tablet 60 mg PO DAILY 4 days #12 tabs 04/12/22 Previous Rx's Medication Instructions Recorded prochlorperazine maleate 5 mg 5 mg PO TID PRN nausea and 04/15/21 tablet vomiting #30 tabs topiramate 100 mg tablet (Topamax) 100 mg PO QHS #90 tabs 04/15/21 galcanezumab-gnlm 120 mg/mL 120 mg subcut QMONTH #1 mL 08/26/21 subcutaneous pen injector (Emgality Pen) oxybutynin chloride 5 mg 5 mg PO DAILY #90 tabs 09/21/21 tablet,extended release 24 hr eletriptan 40 mg tablet (Relpax) See Rx Instructions PO .COMPLEX 01/27/22 #10 tabs cephalexin 500 mg capsule 500 mg PO TID 7 days #21 caps 04/10/22 prednisone 20 mg tablet 60 mg PO DAILY 4 days #12 tabs 04/12/22 Allergies Allergy/AdvReac Type Severity Reaction Status Date / Time etodolac Allergy Severe Hives Verified 04/11/22 14:38 house dust Allergy Unknown Verified 04/11/22 14:38 mold Allergy Unknown Verified 04/11/22 14:38 pollen extracts Allergy Unknown Verified 04/11/22 14:38 General Stated Complaint: Recheck VALENTIN: 4 Review of Systems All systems reviewed & are unremarkable except as noted in HPI and below Constitutional Constitutional: Denies chills, Denies fever(s) and Denies weakness Cardiovascular Cardiovascular: Denies chest pain and Denies dyspnea Respiratory Respiratory: Denies cough and Denies dyspnea Gastrointestinal Gastrointestinal: Denies abdominal pain, Denies nausea and Denies vomiting Neurologic Neurologic: Denies weakness PFSH All Active Problems (Updated 04/12/22 @ 17:06 by Andreas Valero MD) Right ACL tear (Acute) Date of injury: 09/28/17 MAGDALENO on CPAP (Chronic) Mood disorder (Chronic) long history of depression Hereditary hemochromatosis (Chronic) Smoker (Chronic) Obesity (Chronic) Migraine (Chronic) Nephrolithiasis (Chronic ~04/2018) Diverticulosis (Acute) Migraine headache without aura (Acute) Mixed stress and urge urinary incontinence (Acute) Iron deficiency anemia (Acute) Helicobacter pylori gastrointestinal tract infection (Acute) Sciatica of right side (Acute) Sciatic leg pain (Acute) Low back pain (Acute) Cellulitis of left leg (Acute) Cellulitis of left leg (Acute) Left leg swelling (Acute) Medical History Allergic rhinitis Chronic recurrent major depressive disorder Depression Family history of epilepsy Fusion of spine, cervical region (~2012) History of retinal detachment (~1996) Repair 1996 Sciatica Right Tobacco use Surgical History History of detached retina repair Left eye [facility] [place] - 1996 S/P colonoscopy (~09/03/18) 1991- done for diarrhea. Diagnosed with IBS-D S/P reconstruction procedure (~2005) Nose Status post arthroscopy of right knee Right knee arthroscopy with ACL debridement DOS: 03/14/18 Dr. Man Status post arthroscopy of right shoulder Distal clavicle excision 2005 Status post cervical spinal fusion C4-5 fusion 2012 Status post nasal surgery Nose reconstruction 2005 Family History Mother Mitral valve prolapse History of supraventricular tachycardia History of atrial fibrillation Dementia Hereditary hemochromatosis Father Hypertension Hyperlipidemia Glaucoma Colorectal polyps Sister No problems noted. Social History Smoking/Tobacco Use Status: Current every day Tobacco Type: cigarettes Years smoked: 30 Smoking risk assessment performed?: Yes Alcohol Intake: current Alcohol Intake frequency: holidays/special occasions only Alcohol type: hard liquor Drug use: Daily Substance use type: marijuana Details: daily user, last 06/01/21. Do you feel safe at home: Yes Do you feel safe in your relationship?: Yes Additional Social history: Lives with Mother Exam Const General: no acute distress Orientation: alert HENMT Head: normal to inspection Ears: external ears normal General nose exam: external nose normal Mouth: moist mucous membranes Eyes General: appearance normal, both eyes and all related structures Neck Neck: normal visual inspection Resp Effort & Inspection: normal respiratory effort and able to speak in complete sentences Cardio Rate: regular rate Skin General skin exam: elasticity normal Neuro General: patient alert and patient oriented x3 Extrem General: full ROM and capillary refill normal Psych Mental Status: mental status grossly normal Course Vital Signs Vital signs: Vital Signs Temperature 36.8 C 04/12/22 16:36 Pulse 74 04/12/22 16:36 Respiratory Rate 16 04/12/22 16:36 Blood Pressure 134/70 04/12/22 16:36 Pulse Oximetry 99 04/12/22 16:36 Temperature 36.8 C 04/12/22 16:36 Temperature Source Temporal Artery Scan 04/12/22 16:36 Pulse 74 04/12/22 16:36 Respiratory Rate 16 04/12/22 16:36 Respiratory Effort 04/12/22 16:50 Blood Pressure 134/70 04/12/22 16:36 Blood Pressure Position Sitting 04/12/22 16:36 Pulse Oximetry 99 04/12/22 16:36 Oxygen Delivery Method Room Air 04/12/22 16:36 Oxygen Flow Rate 0 04/12/22 16:36 Pain Level 0 04/12/22 16:36
[2022-04-12] MEDS: predniSONE 20 MG TAB 60 MG PO (17:03)
== END 2022-04-12 17:15 | disposition home or self-care (01) ==
PROVIDERS: Emergency Provider Emergency Medicine; PCP Family Medicine
DX: R60.0 Localized edema (principal)
CPT/HCPCS: 99283; 99284; J7512

== ENCOUNTER 2022-08-31 02:49 | Outpatient (CLI) | payer MEDICAID, SELFPAY ==
[2022-08-31 08:11] LABS: Abs Immature Grans 0.02 10^3/uL (0.0-0.06); Absolute Basophil Count 0.03 10^3/uL (0.0-0.2); Absolute Eosinophil Count 0.28 10^3/uL (0.0-0.7); Absolute Lymphocyte Count 2.36 10^3/uL (1.2-3.4); Absolute Monocyte Count 0.35 10^3/uL (0.1-0.8); Absolute Neutrophil Count 4.32 10^3/uL (1.2-6.7); Basophils % 0.4; Eosinophils % 3.8; HCT 39.4 % (36.0-46.0); HGB 13.4 g/dL (11.2-15.7); Immature Grans % 0.3; Lymphocytes % 32.1; MCH 30.7 pg (27.0-33.0); MCV 90 fL (80-95); MPV 9.8 fL (8.0-11.0); Monocytes % 4.8; Neutrophils % 58.6; Platelet Count 207 10^3/uL (130-400); RBC 4.37 10^6/uL (3.93-5.22); RDW 12.8 % (11.7-14.6); RDW-SD 42.2 fL; WBC 7.36 10^3/uL (4.4-10.8)
[2022-08-31 08:46] LABS: Iron 43 ug/dL (50-170)
[2022-08-31 08:48] LABS: Calculated LDL 89 mg/dL (<100); Cholesterol 179 mg/dL (<200); Ferritin 19 ng/mL (8-252); HDL Cholesterol 81 mg/dL (40-60); TSH 0.48 uIU/mL (0.36-3.74); Triglyceride 49 mg/dL (<150)
[2022-08-31 19:16] LABS: T3,Free 3.6 pg/mL (2.8-5.3)
== END 2022-08-31 02:50 | disposition home or self-care (01) ==
PROVIDERS: PCP Family Medicine; Visit Provider Family Medicine
DX: F33.9 Major depressive disorder, recurrent, unspecified (principal); D50.9 Iron deficiency anemia, unspecified; E83.110 Hereditary hemochromatosis
CPT/HCPCS: 36415; 80061; 80178; 82728; 83540; 84443; 84481; 85025

== ENCOUNTER 2023-04-29 11:05 | Outpatient (REF) | payer BC, SELFPAY ==
[2023-04-29 17:00] LABS: Abs Immature Grans 0.02 10^3/uL (0.0-0.06); Absolute Basophil Count 0.04 10^3/uL (0.0-0.2); Absolute Eosinophil Count 0.11 10^3/uL (0.0-0.7); Absolute Monocyte Count 0.72 10^3/uL (0.1-0.8); Absolute Neutrophil Count 5.48 10^3/uL (1.2-6.7); Basophils % 0.4; Eosinophils % 1.1; HCT 45.3 % (36.0-46.0); HGB 15.4 g/dL (11.2-15.7); Immature Grans % 0.2; Lymphocytes % 34.1; MCH 29.3 pg (27.0-33.0); MCV 86 fL (80-95); Monocytes % 7.4; Neutrophils % 56.8; Platelet Count 270 10^3/uL (130-400); RBC 5.26 10^6/uL (3.93-5.22); RDW 13.2 % (11.7-14.6); WBC 9.67 10^3/uL (4.4-10.8)
[2023-04-29 17:15] LABS: Anion Gap 11.5 mmol/L (3-11); BUN 22 mg/dL (7-18); CO2 27.5 mmol/L (21.0-32.0); CREATININE 1.3 mg/dL (0.55-1.02); Chloride 100 mmol/L (98-107); Estimated GFR 48.56 (mL/min/1.73m2); Glucose 109 mg/dL (74-106); Magnesium 2.3 mg/dL (1.8-2.4); Sodium 139 mmol/L (136-145)
== END 2023-04-29 11:06 | disposition home or self-care (01) ==
LOC: LBN 11:05
PROVIDERS: PCP Family Medicine; Visit Provider Physician Assistant Medical
DX: R42 Dizziness and giddiness (principal)
CPT/HCPCS: 80048; 83735; 85025

== ENCOUNTER 2023-09-01 01:40 | Outpatient (CLI) | payer BC, SELFPAY ==
[2023-09-01 08:07] LABS: Abs Immature Grans 0.02 10^3/uL (0.0-0.06); Absolute Basophil Count 0.03 10^3/uL (0.0-0.2); Absolute Eosinophil Count 0.32 10^3/uL (0.0-0.7); Absolute Lymphocyte Count 2.84 10^3/uL (1.2-3.4); Absolute Monocyte Count 0.55 10^3/uL (0.1-0.8); Basophils % 0.4 %; Eosinophils % 4.3 %; HCT 39.2 % (36.0-46.0); HGB 13.1 g/dL (11.2-15.7); Immature Grans % 0.3 %; Lymphocytes % 38.6 %; MCH 30.3 pg (27.0-33.0); MCHC 33.4 % (32.0-36.0); MCV 91 fL (80-95); MPV 9.7 fL (8.0-11.0); Monocytes % 7.5 %; Neutrophils % 48.9 %; Platelet Count 222 10^3/uL (130-400); RBC 4.33 10^6/uL (3.93-5.22); RDW 12.7 % (11.7-14.6); WBC 7.36 10^3/uL (4.4-10.8)
[2023-09-01 08:49] LABS: ALT 34 U/L (14-59); AST 26 U/L (15-37); Albumin 3.6 g/dL (3.4-5.0); Alkaline Phosphatase 95 U/L (46-116); Anion Gap 9.7 mmol/L (3-11); BUN 12 mg/dL (7-18); CO2 23.3 mmol/L (21.0-32.0); Calcium 8.8 mg/dL (8.5-10.1); Calculated LDL 81 mg/dL (<100); Chloride 109 mmol/L (98-107); Cholesterol 169 mg/dL (<200); Estimated GFR 66.53 (mL/min/1.73m2); Ferritin 29 ng/mL (8-252); Glucose 103 mg/dL (74-106); HDL Cholesterol 77 mg/dL (40-60); Sodium 142 mmol/L (136-145); TSH 0.41 uIU/Ml (0.36-3.74); Total Protein 7.4 g/dL (6.4-8.2); Triglyceride 57 mg/dL (<150)
== END 2023-09-01 01:41 | disposition home or self-care (01) ==
LOC: LBO 01:41
PROVIDERS: PCP Family Medicine; Visit Provider Family Medicine
DX: I10 Essential (primary) hypertension (principal); E83.110 Hereditary hemochromatosis
CPT/HCPCS: 36415; 80053; 80061; 82728; 84443; 85025

== ENCOUNTER → 2023-09-11 02:52 | Outpatient (CLI) | payer BC, SELFPAY ==
--- NOTE | 2023-09-11 | DI.MAMMO_ITS ---
Exam(s) MAMMO SCREENING EXAM: MAMMO SCREENING CLINICAL HISTORY: SCREENING, Z12.31. TECHNIQUE: Bilateral full field digital CC and MLO mammographic images were obtained with 3D tomosyn thesis and utilizing computer aided detection (CAD). COMPARISON: Prior mammograms were reviewed. FINDINGS: There has been no significant change in the appearance and distribution of the fibroglandular tissue. No CAD designations. There are no new spiculated masses nor malignant appearing microcalcification groups. There is no significant architectural distortion nor skin thickening-retraction. IMPRESSION: No radiographic evidence of malignancy. BI-RADS Category 1 - Negative Breast Density - Category B - Scattered areas of fibroglandular density Breast density Category C or D implies that the patient has dense breast tissue. Dense breast tissue can make it harder to find cancer on a mammogram. Dense breast tissue is also associated with an incr eased risk of breast cancer. This information about the result of the mammogram report was provided to the patient to raise their awareness. Use this report when you speak with the patient about their risks for breast cancer, which includes their family history. At that time, you may recommend additional screening tests (Ultrasoun d or MRI) as these tests may add significant information. A negative radiographic report should not delay biopsy if a dominant or clinically suspicious mass is present. Up to ten percent of cancers are not identified on mammography. A negative report may reinforce clinical impression. Adenosis and dense breasts may obscure an underlying neoplasm. False positive reports average 6 to 10%. Patient will receive a letter notifying them of these results.
== END ==
PROVIDERS: PCP Family Medicine; Visit Provider Family Medicine
DX: Z12.31 Encounter for screening mammogram for malignant neoplasm of breast (principal)
CPT/HCPCS: 77063; 77067

== ENCOUNTER 2023-12-08 02:53 | Outpatient (CLI) | payer BC, SELFPAY ==
--- NOTE | 2023-12-17 20:32 | PDOC.EEG_ITS ---
Neurology EEG EEG: [facility] Department of Neurology LONG-TERM AMBULATORY EEG REPORT Date of Recordin12/08/23 at 16:04:03 to 12/10/23 at 05:28:59 Interpreting Physician: Dr. Karla Concepcion PCP/Referring Provider: Rita Luong NP Reason for study: Valerie Mccann is a 58 year-old with staring spells. Current Medications: Home Medications ?Medication ?Instructions ?Recorded ?Confirmed ?Type atorvastatin 40 mg tablet 40 mg PO DAILY 02/28/18 11/09/23 History bupropion HCl 300 mg 24 hr tablet, 300 mg PO QAM 02/28/18 11/09/23 History extended release (Wellbutrin XL) bupropion HCl 150 mg 24 hr tablet, 150 mg PO DAILY 09/04/19 11/09/23 History extended release liothyronine 25 mcg tablet 50 mcg PO DAILY 07/22/20 11/09/23 History levomefolate calcium 15 mg tablet 15 mg PO DAILY 05/13/21 11/09/23 History cholecalciferol (vitamin D3) 50 50 mcg PO DAILY 11/05/21 11/09/23 History mcg (2,000 unit) tablet (Vitamin D3) methocarbamol 750 mg tablet 750 mg PO QID PRN 11/05/21 11/09/23 History aripiprazole 15 mg tablet 10 mg PO HS 01/18/22 11/09/23 History duloxetine 60 mg capsule,delayed 60 mg PO BID 01/18/22 11/09/23 History release (Cymbalta) ferrous sulfate 325 mg (65 mg 1 mg 04/12/22 11/09/23 History iron) tablet (Iron (ferrous sulfate)) prochlorperazine maleate 5 mg 5 mg PO TID PRN nausea and 11/29/22 11/09/23 Rx tablet vomiting #30 tabs galcanezumab-gnlm 120 mg/mL See Rx Instructions .Route 09/05/23 11/09/23 Rx subcutaneous pen injector .COMPLEX #1 mL (Emgality Pen) losartan 100 mg tablet 100 mg PO DAILY 09/27/23 11/09/23 History mirabegron 25 mg tablet,extended 25 mg PO DAILY #90 tabs 11/02/23 11/09/23 Rx release 24 hr (Myrbetriq) eletriptan 40 mg tablet (Relpax) See Rx Instructions PO .COMPLEX 11/09/23 11/09/23 Rx #10 tabs METHODS: An 18-channel digitized electroencephalogram was recorded in the ambulatory setting with video. The 10/20 international system of electrode placement was used and bipolar and referential electrode montages were recorded. In addition to EEG the patient was monitored for EKG and by video. Activation procedures of photic stimulation and hyperventilation were performed if applicable. The duration of the recording was ~37.5 hours. Of note, the record was intermittently obscured by significant artifact starting on 12/09/23 at 05:30:38 and lasted the duration of the recording. DESCRIPTION OF EEG: Waking background activity: During maximal wakefulness a 10-Hz posterior ba ckground rhythm was present which was well-modulated, symmetrical, reactive to eye opening, and of moderate voltage. Faster frequencies were present in the bilateral anterior head regions. There was a normal anterior-posterior voltage gradient. Drowsy and sleeping background activity: During drowsiness, there was attenuation of the posterior dominant background rhythm and vertex waves. Normal stage II and III sleep was present with symmetrical sleep spindles, K- complexes, and vertex waves with slowing of the background rhythm to delta/theta frequencies. REM sleep manifested by rapid lateral eye movements and faster background rhythms was recorded. Arousal was unremarkable. Interictal abnormalities: none. Ictal findings: No events captured. Activating Procedures: Photic stimulation was performed which produced a symmetrical posterior driving response at various flash frequencies. Hyperventilation was performed with moderate effort and produced no physiological slowing of the background. EKG: EKG revealed normal sinus rhythm. INTERPRETATION: This long-term EEG is normal during the awake and sleep states as well as during the activation procedures. PRIOR EEG: none CLINICAL CORRELATION: No focal regions of cerebral dysfunction or epileptiform activity was present. Epilepsy remains a clinical diagnosis and a normal EEG does not rule out epilepsy. Clinical correlation is advised. Karla Concepcion MD Date of service: 12/08/23
== END 2023-12-08 02:54 | disposition home or self-care (01) ==
LOC: RT 02:54
PROVIDERS: PCP Family Medicine; Visit Provider Nurse Practitioner Adult Health
DX: R68.89 Other general symptoms and signs (principal); R40.4 Transient alteration of awareness
CPT/HCPCS: 95714; 95722

== ENCOUNTER 2024-01-02 01:02 | Outpatient (CLI) | payer BC, SELFPAY ==
--- NOTE | 2024-01-02 06:45 | DI.MRI_ITS ---
Exam(s) MR UPPER JOINT RT WO EXAM: MR UPPER JOINT RT WO CLINICAL HISTORY: evaluate rupture,BICEPS TENDONITIS ON RT,M75.21 TECHNIQUE: Multiplanar multisequence MRI of the shoulder was performed. COMPARISON: CR,XR XR HIP RT AP LAT ONLY from 10/27/2021 MR MR UPPER EXTREMITY RT WO from 01/02/2024 FINDINGS: In which is proper prior surgical procedure. MARROW:There is no evidence of fracture, Hill-Sachs deformity, nor ominous osseous lesions. GLENOHUMERAL JOINT: No large joint effusion nor loose intra-articular bodies. Small amount of increa sed fluid is noted in the inferior recess. Significant articular cartilage loss with mild articular surface sclerosis signal. There is a degenerative subarticular cyst evident in the posterior-lateral humeral head. ROTATOR CUFF MECHANISM: AC JOINT/ACROMIUM: Some degenerative change noted at this level and evidence of previous surgery. The re may be an element of os acromial here. Supraspinatus: There is tendinosis signal versus postop appearance changes Infraspinatus: Tendinopathy versus evidence of prior repair. Teres Minor: Intact. No evidence of tear nor muscle atrophy. Subscapularis/anterior cuff: Tendinopathy versus evidence of prior surgical repair. BICEPS TENDON: There is nonvisualization of the long head biceps tendon within the bicipital groove a nd intra-articular aspect, consistent with tear. On the lower most aspect of the field of view here t here is some edema along the long head biceps muscle and surrounding fascia. LABRUM: Is heterogeneous appearance of the labrum with some thickening along the anterior labrum. The re is no cassie labral tear. No evidence of paralabral cyst. LABROLIGAMENTOUS/CAPSULAR COMPLEX: There is no evidence of avulsion of the anterior-inferior labrum, capsule, inferior glenohumeral liga ment complex nor disruption of the scapular periosteum to suggest the presence of a Bankart lesion. QUADRILATERAL SPACE: No evidence of mass in the region of the axillary nerve and dorsal circumflex hu meral vessels. Visualized triceps muscle at this level appears unremarkable. IMPRESSION: 1. There is evidence of prior rotator cuff repair surgery. The appearance of the tendons of supraspin atus, infraspinatus and subscapularis most probably reflect postsurgical changes. There is no full-th ickness tear of these tendons. 2. The intra-articular and bicipital groove aspect of the long head biceps tendon are torn and there is associated edema along the long head biceps muscle and surrounding fascia consistent with acute or subacute tear. The torn tendon edge is best seen on axial PD fat sat sequence [id number]/image [id number]. 3. There is a heterogeneous appearance of the glenoid labrum consistent with degenerative change. No obvious distinct labral tear evident on this non arthrogram study. 4. 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 DATA REPOSITORY:
--- NOTE | 2024-01-02 06:45 | DI.MRI_ITS ---
Exam(s) MR UPPER EXTREMITY RT WO EXAM: MR UPPER EXTREMITY RT WO CLINICAL HISTORY: evaluate rupture,BICEPS TENDONITIS ON RT,M75.21 TECHNIQUE: Multiplanar multisequence MRI was performed. Field of view of this study is from the mid humerus down to the radial tuberosity. COMPARISON: No exams were available for comparison FINDINGS: MARROW:There is no evidence of fracture, bone contusion, nor significant osseous lesions. MUSCLES: There is signal abnormality/edema along the posterior aspect of the biceps muscle and surrou nding fascia seen on the uppermost aspect of the field of view. This is most probably related to pat hology above this field of view level. The distal biceps tendon appears intact, this best seen on th e axial images. Its attachment site to the radial tuberosity appears intact IMPRESSION: 1. Distal biceps tendon is intact 2. There is abnormal edema signal within the mid biceps muscle and surrounding fascia consistent with acute injury above the level the field of view of this study. 3. The distal biceps tendon appears intact. DATA REPOSITORY:
--- NOTE | 2024-01-02 18:11 | DI.VRAD_ITS ---
PROCEDURE INFORMATION: Exam: MR Right Upper Extremity Joint Without Contrast; Shoulder Exam date and time: 01/02/2024 12:11 PM Age: 58 years old Clinical indication: Other: Evaluate right bicep tendon TECHNIQUE: Imaging protocol: Magnetic resonance imaging of the right upper extremity without contrast. Exam focused on the shoulder. COMPARISON: MR C-SPINE^ROUTINE 09/07/2018 11:09 AM FINDINGS: Bones/joints: Deformity of the acromion and lateral clavicle may be related to postoperative change, possibly with associated os acromiale. Small joint effusion. Nearly full-thickness cartilage loss at the glenohumeral joint space with mild articular surface sclerosis. Glenoid labrum: Heterogeneous appearance of the labrum, slightly thickened along the anterior aspect, without cassie tear. Supraspinatus tendon: There appears to be tendinopathy or operative repair of the supraspinatus tendon. Infraspinatus tendon: There appears to be tendinopathy or operative repair of the infraspinatus tendon. Subscapularis tendon: There appears to be tendinopathy or operative repair of the subscapularis tendon. Teres minor tendon: Unremarkable. No evidence of tear. Tendon of biceps brachii: The long head biceps tendon is not seen through the intra-articular portion and within the bicipital groove. To the extent evaluated in the upper arm there is edema of the long head biceps muscle and surrounding fascia. There is irregularity associated with the superior glenoid which may represent the residual intra-articular attachment site. The short head biceps tendon and muscle are unremarkable to the extent evaluated. Glenohumeral ligaments: Unremarkable. Soft tissues: Unremarkable. IMPRESSION: 1. Imaging findings are consistent with tear of the long head biceps tendon, with perhaps a minimal residual proximal attachment site remnant within the articular space as well as edema associated with the visualized portions of the long head biceps muscle and surrounding fascia consistent with acute injury. 2. Postoperative changes of the right shoulder are consistent with prior osteotomy and rotator cuff repair, correlate with the patient's surgical history. 3. Heterogeneous appearance of the glenoid labrum may be related to degenerative or postoperative change; no cassie tear is identified, however arthrography may be of benefit for further characterization. 4. 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 Dictated and Authenticated by: Jose Guadalupe Cheek MD. Ordering:ALANNAH Browning MD
--- NOTE | 2024-01-02 18:29 | DI.VRAD_ITS ---
PROCEDURE INFORMATION: Exam: MR Right Upper Extremity Other Than Joint Without Contrast, Humerus. Exam date and time: 01/02/2024 12:42 PM Age: 58 years old Clinical indication: Patient HX: Evaluate rupture bicep tendon right elbow TECHNIQUE: Imaging protocol: Magnetic resonance imaging of the right upper extremity other than joint without contrast. Exam focused on the humerus. COMPARISON: MR UPPER JOINT RT WO 01/02/2024 12:11 PM FINDINGS: Bones/joints: Unremarkable. No bone abnormalities. Grossly anatomic alignment of the right elbow. Soft tissues: There is incompletely evaluated edema of the more proximal aspect of the long head biceps muscle and surrounding fascia; this is concordant with the appearance of the more proximal muscle and tendon seen on the right shoulder series dictated separately. No distal muscle or tendon injury is identified to the extent evaluated. IMPRESSION: Edema of the proximal long head biceps muscle and surrounding fascia, concordant with imaging findings on the right shoulder series and consistent with acute injury. No evidence of distal injury. Dictated and Authenticated by: Jose Guadalupe Cheek MD. Ordering:ALANNAH Browning MD
== END 2024-01-02 01:22 ==
PROVIDERS: PCP Family Medicine; Visit Provider Nurse Practitioner Family
DX: M75.21 Bicipital tendinitis, right shoulder (principal); Z98.890 Other specified postprocedural states
CPT/HCPCS: 73218; 73221

== ENCOUNTER 2024-01-10 11:51 | Outpatient (CLI) | payer BC, SELFPAY ==
--- NOTE | 2024-01-10 08:15 | DI.RAD_ITS ---
Exam(s) XR SHOULDER RT COMPLETE 2+V EXAM: XR SHOULDER RT COMPLETE 2+V CLINICAL HISTORY: RIGHT SHOULDER PAIN. TECHNIQUE: 2D digital imaging was performed. Two views. COMPARISON: MR MR UPPER EXTREMITY RT WO from 01/02/2024 FINDINGS: BONES: No acute fracture is present. No bony destructive lesion is seen. Chronic appearing bony frag ment above the level of the AC joint. No significant inferior spurring. JOINTS: No dislocation present. Glenohumeral joint space is maintained. SOFT TISSUE: Normal. IMPRESSION: No acute abnormality. DATA REPOSITORY: RADIATION DOSE DELIVERED:
== END 2024-01-10 11:52 ==
LOC: DIORS 01-11 07:50
PROVIDERS: PCP Family Medicine; Visit Provider Student in an Organized Health Care Education/Training Program
DX: M25.511 Pain in right shoulder (principal)
CPT/HCPCS: 73030

== ENCOUNTER 2024-06-18 16:14 | Outpatient (REF) | payer BC, SELFPAY ==
[2024-06-18 21:40] LABS: Abs Immature Grans 0.02 10^3/uL (0.0-0.06); Absolute Basophil Count 0.05 10^3/uL (0.0-0.2); Absolute Eosinophil Count 0.22 10^3/uL (0.0-0.7); Absolute Lymphocyte Count 2.58 10^3/uL (1.2-3.4); Absolute Monocyte Count 0.42 10^3/uL (0.1-0.8); Absolute Neutrophil Count 4.41 10^3/uL (1.2-6.7); Basophils % 0.6 %; Eosinophils % 2.9 %; HCT 38.1 % (36.0-46.0); HGB 12.7 g/dL (11.2-15.7); Immature Grans % 0.3 %; Lymphocytes % 33.5 %; MCH 29.7 pg (27.0-33.0); MCHC 33.3 % (32.0-36.0); MCV 89 fL (80-95); MPV 10.4 fL (8.0-11.0); Monocytes % 5.5 %; Neutrophils % 57.2 %; Platelet Count 266 10^3/uL (130-400); RBC 4.28 10^6/uL (3.93-5.22); RDW 12.7 % (11.7-14.6); RDW-SD 41.8 fL
[2024-06-18 21:53] LABS: ALT 29 U/L (14-59); AST 27 U/L (15-37); Albumin 3.6 g/dL (3.4-5.0); Alkaline Phosphatase 127 U/L (46-116); Anion Gap 9.4 mmol/L (3-11); BUN 15 mg/dL (7-18); Bilirubin, Total 0.4 mg/dL (0.2-1.0); CO2 28.6 mmol/L (21.0-32.0); CREATININE 0.7 mg/dL (0.55-1.02); Calcium 9.6 mg/dL (8.5-10.1); Chloride 108 mmol/L (98-107); Estimated GFR 101.44 (mL/min/1.73m2); Glucose 123 mg/dL (74-106); Potassium 4.2 mmol/L (3.5-5.1); Sodium 146 mmol/L (136-145)
== END 2024-06-18 16:15 | disposition home or self-care (01) ==
LOC: LBN 16:14
PROVIDERS: PCP Family Medicine; Visit Provider Nurse Practitioner Family
DX: L03.90 Cellulitis, unspecified (principal); L03.116 Cellulitis of left lower limb
CPT/HCPCS: 80053; 85025

== ENCOUNTER 2024-08-19 02:41 | Outpatient (CLI) | payer SELFPAY ==
[2024-08-19 18:40] LABS: HBs Antibody, Quant 64.1 mIU/mL (See Note); Hepatitis B Surface Ab Positive (See Note)
== END 2024-08-19 02:42 | disposition home or self-care (01) ==
LOC: LOS 02:41
PROVIDERS: PCP Family Medicine; Visit Provider Family Medicine
DX: Z78.9 Other specified health status (principal)
CPT/HCPCS: 36415; 86706

== ENCOUNTER 2024-10-19 07:56 | Emergency (ER) | payer OTHER, SELFPAY ==
[2024-10-19 08:00] VITALS: BP 164/86; PULSE 80; RESP 16; TEMP 36.9; O2SAT 98
[2024-10-19 08:04] VITALS: BP 164/86; PULSE 80; RESP 16; TEMP 36.9; O2SAT 98
[2024-10-19 09:54] VITALS: BP 162/98; PULSE 69; RESP 15; O2SAT 97
--- NOTE | 2024-10-19 13:38 | W.ED.GENAD ---
Discharge Plan Disposition Patient Disposition: Home Condition: Stable Discharge Details Clinical Impression: Distorted vision Primary Care Provider: Angela Leon ED Provider: Samantha Chaudhari Home Meds and New Rx's Prescriptions: Continued atorvastatin 40 mg tablet 40 mg PO DAILY duloxetine [Cymbalta] 60 mg capsule,delayed release(DR/EC) 60 mg PO BID liothyronine 25 mcg tablet 50 mcg PO DAILY prochlorperazine maleate 5 mg tablet 5 mg PO TID PRN (Reason: nausea and vomiting) Qty: 30 1RF eletriptan [Relpax] 40 mg tablet See Rx Instructions PO .COMPLEX Qty: 10 3RF Rx Instructions: take 1 tab at onset of headache; if no relief, may repeat 1 tab after at least 2 hrs; max = 2 tabs/24 hrs PO gabapentin 300 mg capsule 300 mg PO BID mirabegron [Myrbetriq] 50 mg tablet extended release 24 hr 50 mg PO DAILY Qty: 90 3RF Rx Instructions: Note dosage increase losartan 100 mg tablet 100 mg PO DAILY All Day Allergy (cetirizine) 10 mg capsule 10 mg PO DAILY Emgality Pen 120 mg/mL pen injector See Rx Instructions .ROUTE .COMPLEX Qty: 1 11RF Dose Instruction: INJECT SUBCUTANEOUSLY EVERY MONTH Rx Instructions: INJECT SUBCUTANEOUSLY EVERY MONTH cholecalciferol (vitamin D3) [Vitamin D3] 50 mcg (2,000 unit) Tablet 50 mcg PO DAILY methocarbamol 750 mg tablet 750 mg PO QID PRN aripiprazole 15 mg tablet 10 mg PO HS ferrous sulfate [Iron (ferrous sulfate)] 325 mg (65 mg iron) Tablet 1 mg PO ONCE Discharge Instructions Additional Instructions: go directly to main entrance at [facility] and ask front elevator operator to page opthalmologist cloud consultant go up the stairs to 4b if there isn't someone available at the front elevator operator, call and ask them to page ophthalmology and head up to 4 b Discharge Data Discharge Date/Time-TO BE ENTERED AT DEPARTURE: 10/19/24 09:59 HPI General Date/Time Provider Initiated Documentation: 10/19/24 08:02. HPI Narrative: 58-year-old female with retinal detachment in the left eye, iron deficiency anemia, migraines, tobacco abuse, depression, and hypertension presents with a new floater in the right eye and shimmering line formation, noticeable in the inferior position. Symptoms began while using her phone. No associated trauma or headache. Different from typical migraines, no aura. No change in vision since onset at 0900 hours. Related Data Home Medications ?Medication ?Instructions ?Recorded ?Confirmed atorvastatin 40 mg tablet 40 mg PO DAILY 02/28/18 10/19/24 liothyronine 25 mcg tablet 50 mcg PO DAILY 07/22/20 10/19/24 cholecalciferol (vitamin D3) 50 50 mcg PO DAILY 11/05/21 10/19/24 mcg (2,000 unit) tablet (Vitamin D3) methocarbamol 750 mg tablet 750 mg PO QID PRN 11/05/21 10/19/24 aripiprazole 15 mg tablet 10 mg PO HS 01/18/22 10/19/24 duloxetine 60 mg capsule,delayed 60 mg PO BID 01/18/22 10/19/24 release (Cymbalta) ferrous sulfate 325 mg (65 mg 1 mg PO ONCE 04/12/22 10/19/24 iron) tablet (Iron (ferrous sulfate)) prochlorperazine maleate 5 mg 5 mg PO TID PRN nausea and 11/29/22 10/19/24 tablet vomiting #30 tabs losartan 100 mg tablet 100 mg PO DAILY 09/27/23 10/19/24 eletriptan 40 mg tablet (Relpax) See Rx Instructions PO .COMPLEX 11/09/23 10/19/24 #10 tabs cetirizine 10 mg capsule (All Day 10 mg PO DAILY 05/04/24 10/19/24 Allergy (cetirizine)) gabapentin 300 mg capsule 300 mg PO BID 05/16/24 10/19/24 mirabegron 50 mg tablet,extended 50 mg PO DAILY #90 tabs 06/27/24 10/19/24 release 24 hr (Myrbetriq) galcanezumab-gnlm 120 mg/mL See Rx Instructions .Route 09/02/24 10/19/24 subcutaneous pen injector .COMPLEX #1 mL (Emgality Pen) Previous Rx's ?Medication ?Instructions ?Recorded prochlorperazine maleate 5 mg 5 mg PO TID PRN nausea and 11/29/22 tablet vomiting #30 tabs eletriptan 40 mg tablet (Relpax) See Rx Instructions PO .COMPLEX 11/09/23 #10 tabs mirabegron 50 mg tablet,extended 50 mg PO DAILY #90 tabs 06/27/24 release 24 hr (Myrbetriq) galcanezumab-gnlm 120 mg/mL See Rx Instructions .Route 09/02/24 subcutaneous pen injector .COMPLEX #1 mL (Emgality Pen) Allergies Allergy/AdvReac Type Severity Reaction Status Date / Time etodolac Allergy Severe Hives Verified 10/19/24 08:05 house dust Allergy Unknown Other (See Verified 10/19/24 08:05 Comment) mold Allergy Unknown Other (See Verified 10/19/24 08:05 Comment) pollen extracts Allergy Unknown Other (See Verified 10/19/24 08:05 Comment) oxybutynin AdvReac Mild dry mouth Verified 10/19/24 08:05 General Stated Complaint: EyeProblem VALENTIN: 3 Exam Narrative Exam Narrative: General Appearance: Alert and oriented, in no acute distress. Vital signs: Within normal limits. HEENT: Pupils equal, round, reactive to light and accommodation. Vision preserved. Visual acuity: 20/70 right, 20/50 left, 20/40 both eyes. Respiratory: Within normal limits. Skin: Warm and dry, no rash. Neurological: No pain. Course Vital Signs Vital signs: Vital Signs Temperature 36.9 C 10/19/24 08:00 Pulse 80 10/19/24 08:00 Respiratory Rate 16 10/19/24 08:00 Blood Pressure 164/86 H 10/19/24 08:00 Pulse Oximetry 98 10/19/24 08:00 Temperature 36.9 C 10/19/24 08:04 Temperature Source Oral 10/19/24 08:04 Pulse 69 10/19/24 09:54 Respiratory Rate 15 10/19/24 09:54 Blood Pressure 162/98 H 10/19/24 09:54 Blood Pressure Position Sitting 10/19/24 08:04 Pulse Oximetry 97 10/19/24 09:54 Oxygen Delivery Method Room Air 10/19/24 08:04 Oxygen Flow Rate 0 10/19/24 08:04 Medical Decision Making Initial Assessment: 58-year-old female with retinal detachment in the left eye, iron deficiency anemia, migraines, tobacco abuse, depression, and hypertension presents with new floater in the right eye and shimmering line formation in the inferior position. No similar symptoms, trauma, or headache. Visual acuity: 20/70 right, 20/50 left, 20/40 both eyes. Funduscopic exam inconclusive. Differential Diagnosis: - Retinal detachment: History of retinal detachment in the left eye. Referral to ophthalmology. - Vitreous hemorrhage: No obvious hemorrhage on ultrasound. Referral to ophthalmology. - Migraine: Different from typical symptoms, no aura. Unlikely cause. ED Course: - Discussed with Dr. Bashir, buff wheel fabricator at [facility]. - Recommended direct transfer to [facility] for ophthalmology assessment. - Discharged with stable vitals to [facility]. Final Assessment: Discussed with buff wheel fabricator. Recommended direct transfer to [facility] for further assessment. Stable aside from mild hypertension. Clinical Impression: - New floater in the right eye - Mild hypertension Disposition: - Discharge: [facility]. Direct transfer for ophthalmology evaluation. Follow-Up: Referral to ophthalmology at [facility]. [facility] All Active Problems (Updated 10/19/24 @ 09:50 by MICKIE Ramires) Distorted vision (Acute) Nontraumatic rupture of right proximal biceps tendon (Acute ~12/2023) Arthritis of right glenohumeral joint (Acute) Spells of decreased attentiveness (Acute) Low back pain (Acute) Sciatic leg pain (Acute) Sciatica of right side (Acute) Helicobacter pylori gastrointestinal tract infection (Acute) Iron deficiency anemia (Acute) Mixed stress and urge urinary incontinence (Acute) Migraine headache without aura (Acute) Diverticulosis (Acute) Nephrolithiasis (Chronic ~04/2018) Migraine (Chronic) Obesity (Chronic) Smoker (Chronic) Hereditary hemochromatosis (Chronic) Mood disorder (Chronic) long history of depression MAGDALENO on CPAP (Chronic) Right ACL tear (Acute) Date of injury: 09/28/17 Medical History Sciatica Right Fusion of spine, cervical region (~2012) History of retinal detachment (~1996) Repair 1996 Tobacco use Family history of epilepsy Allergic rhinitis Chronic recurrent major depressive disorder Depression Surgical History S/P reconstruction procedure (~2005) Nose S/P colonoscopy (~09/03/18) 1991- done for diarrhea. Diagnosed with IBS-D Status post arthroscopy of right knee Right knee arthroscopy with ACL debridement DOS: 03/14/18 Dr. Man Status post arthroscopy of right shoulder Distal clavicle excision 2006 History of detached retina repair Left eye [facility] - 1996 Status post nasal surgery Nose reconstruction 2005 Status post cervical spinal fusion C4-5 fusion 2012 Family History Mother Mitral valve prolapse History of supraventricular tachycardia History of atrial fibrillation Dementia Hereditary hemochromatosis Father Hypertension Hyperlipidemia Glaucoma Colorectal polyps Sister No problems noted. Social History Smoking/Tobacco Use Status: Current every day Tobacco Type: cigarettes Years smoked: 30 Smoking risk assessment performed?: Yes Alcohol Intake: current Alcohol Intake frequency: holidays/special occasions only Alcohol type: hard liquor Drug use: Daily Substance use type: marijuana Details: daily user, last 06/01/21. Do you feel safe at home: Yes Do you feel safe in your relationship?: Yes Additional Social history: Lives with Mother
== END 2024-10-19 09:59 | disposition home or self-care (01) ==
PROVIDERS: Emergency Provider Physician Assistant; PCP Family Medicine
DX: H53.19 Other subjective visual disturbances (principal); I10 Essential (primary) hypertension; Z86.69 Personal history of other diseases of the nervous system and sense organs
CPT/HCPCS: 99283; 99282

== ENCOUNTER 2024-10-24 01:32 | Outpatient (CLI) | payer OTHER, SELFPAY ==
--- NOTE | 2024-10-24 | DI.MAMMO_ITS ---
Exam(s) MAMMO SCREENING EXAM: MAMMO SCREENING CLINICAL HISTORY: SCREENING, Z12.31 TECHNIQUE: Mammograms were interpreted according to the usual protocol including computer analysis with CAD system, tomosynthesis and C-view imaging. COMPARISON: 2514 through 2023 FINDINGS: The breasts are composed of scattered fibroglandular densities, Breast Density category B. No suspicious masses or suspicious microcalcifications are seen. No skin thickening or abnormal axillary lymph nodes are seen. There has been no significant change from prior exams. IMPRESSION: BI-RADS Category 1, Negative mammogram Yearly screening mammography is recommended. Breast Density - Category B - There are scattered areas of fibroglandular density. Breast density Category C or D implies that the patient has dense breast tissue. Dense breast tissue can make it harder to find cancer on a mammogram. Dense breast tissue is also associated with an increased risk of breast cancer. This information about the result of the mammogram report was provided to the patient to raise their awareness. Use this report when you speak with the patient about their risks for breast cancer, which includes their family history. At that time, you may recommend additional screening tests (Ultrasound or MRI) as these tests may add significant information. A negative radiographic report should not delay biopsy if a dominant or clinically suspicious mass is present. Up to ten percent of cancers are not identified on mammography. A negative report may reinforce clinical impression. Adenosis and dense breasts may obscure an underlying neoplasm. False positive reports average 6 to 10%. Patient will receive a letter notifying them of these results.
== END 2024-10-24 01:52 ==
LOC: DI 01:32
PROVIDERS: PCP Family Medicine; Visit Provider Family Medicine
DX: Z12.31 Encounter for screening mammogram for malignant neoplasm of breast (principal); E66.813 Obesity, class 3; Z68.41 Body mass index [BMI] 40.0-44.9, adult; R92.323 Mammographic fibroglandular density, bilateral breasts
CPT/HCPCS: 77063; 77067

== ENCOUNTER 2024-11-07 04:20 | Outpatient (CLI) | payer OTHER, SELFPAY ==
[2024-11-07 07:30] LABS: Abs Immature Grans 0.05 10^3/uL (0.0-0.06); HCT 40.9 % (36.0-46.0); HGB 13.6 g/dL (11.2-15.7); Immature Grans % 0.5 %; MCH 28.9 pg (27.0-33.0); MCHC 33.3 % (32.0-36.0); MCV 87 fL (80-95); MPV 9.4 fL (8.0-11.0); Platelet Count 271 10^3/uL (130-400); RBC 4.70 10^6/uL (3.93-5.22); RDW 14.5 % (11.7-14.6); RDW-SD 46.1 fL; WBC 10.19 10^3/uL (4.4-10.8)
[2024-11-07 10:26] LABS: ALT 36 U/L (14-59); AST 26 U/L (15-37); Albumin 3.8 g/dL (3.4-5.0); Alkaline Phosphatase 137 U/L (46-116); Anion Gap 7.2 mmol/L (3-11); BUN 12 mg/dL (7-18); Bilirubin, Total 0.5 mg/dL (0.2-1.0); CO2 30.8 mmol/L (21.0-32.0); Calcium 9.4 mg/dL (8.5-10.1); Chloride 103 mmol/L (98-107); Estimated GFR 101.44 (mL/min/1.73m2); Ferritin 31 ng/mL (8-252); Glucose 90 mg/dL (74-106); Potassium 3.9 mmol/L (3.5-5.1); Sodium 141 mmol/L (136-145); Total Protein 8.3 g/dL (6.4-8.2); Vitamin B12 546 pg/mL (193-986)
[2024-11-07 12:26] LABS: TSH 1.77 uIU/mL (0.36-3.74)
== END 2024-11-07 04:21 | disposition home or self-care (01) ==
LOC: LBO 04:20
PROVIDERS: PCP Family Medicine; Visit Provider Family Medicine
DX: F33.9 Major depressive disorder, recurrent, unspecified (principal); D50.9 Iron deficiency anemia, unspecified; Z00.00 Encounter for general adult medical examination without abnormal findings
CPT/HCPCS: 36415; 80053; 82607; 82728; 84443; 85025

== ENCOUNTER 2024-11-20 04:25 | Outpatient (CLI) | payer OTHER, SELFPAY ==
[2024-11-20 07:54] LABS: Calculated LDL 84 mg/dL (<100); Cholesterol 169 mg/dL (<200); HDL Cholesterol 72 mg/dL (>or=50); Triglyceride 65 mg/dL (<150)
== END 2024-11-20 04:26 | disposition home or self-care (01) ==
LOC: LBO 04:25
PROVIDERS: PCP Family Medicine; Visit Provider Family Medicine
DX: Z00.00 Encounter for general adult medical examination without abnormal findings (principal)
CPT/HCPCS: 36415; 80061

== ENCOUNTER → 2025-02-13 10:09 | Outpatient (CLI) | payer OTHER, SELFPAY ==
--- NOTE | 2025-02-13 | DI.RAD_ITS ---
Exam(s) XR SHOULDER LT COMPLETE 2+V EXAM: XR SHOULDER LT COMPLETE 2+V CLINICAL HISTORY: ACUTE PAIN LT SHOULDER FOLLOWING HYPEREXTENSION INJURY. TECHNIQUE: 2D digital imaging was performed of the left shoulder. Four images were obtained. AP, Grashey, Y-view and axillary views were obtained. COMPARISON: CR XR SHOULDER RT COMPLETE 2+V from 01/10/2024 FINDINGS: BONES: No acute fracture is present. No bony destructive lesion is seen. JOINTS: No dislocation present. There are mild degenerative changes seen at the acromioclavicular and glenohumeral joints. SOFT TISSUE: Normal. IMPRESSION: Degenerative changes of the left shoulder. DATA REPOSITORY: RADIATION DOSE DELIVERED:
== END ==
PROVIDERS: PCP Family Medicine
DX: M25.512 Pain in left shoulder (principal); M19.012 Primary osteoarthritis, left shoulder
CPT/HCPCS: 73030